=== PATIENT | female | born 1965 | race Caucasian/White ===

== ENCOUNTER 2018-12-05 14:36 | Inpatient (IN) | payer OTHER ==
--- NOTE | 2018-12-05 15:33 | RAD REPORT ---
EXAM DESCRIPTION: RAD - Chest Single View - 12/05/2018 3:28 pm CLINICAL HISTORY: CHEST PAIN Chest pain. COMPARISON: Chest Pa And Lat (2 Views) dated 10/06/2017 FINDINGS: Portable technique limits examination quality. The lungs are grossly clear. The heart is upper limit normal in size. No displaced fractures. IMPRESSION: No acute intrathoracic process suspected.
[2018-12-05 15:34] LABS: Absolute Lymphocytes (CBC) 1.5 K/uL (0.7-4.9); Absolute Monocytes 0.4 K/uL (0.1-1.3); Absolute Neutrophil 3.8 K/uL (1.8-8.0); Basophils % 1.2 % (0-1.3); Eosinophils % 0.5 % (0-4.4); Hematocrit 39.9 % (36.0-45.0); Lymphocytes % 25.1 % (15.3-44.8); MPV 7.5 fL (7.6-11.3); Monocytes % 6.8 % (3.3-12.3); RBC Red Blood Cell Count 4.04 M/uL (3.86-4.86)
[2018-12-05] MEDS ORDERED: KETOROLAC 30 MG/ML INJ ONE (15:41)
[2018-12-05] MEDS ORDERED: ASPIRIN EC 325 MG TABLET PO ONE (15:42)
[2018-12-05 15:54] LABS: Albumin 4.4 g/dL (3.4-5.0); Bilirubin Direct 0.2 mg/dL (0-0.2); Bilirubin Total 0.5 mg/dL (0.2-1.0); Magnesium 2.3 mg/dL (1.8-2.4); Protein, Total 7.9 g/dL (6.4-8.2); Troponin (Emerg Dept Use Only) 0.06 ng/mL (0.0-0.045)
[2018-12-05 16:10] LABS: Urine Blood NEGATIVE (NEG); Urine Glucose NEGATIVE (NEG); Urine Protein NEGATIVE (NEG)
[2018-12-05] MEDS ORDERED: METOPROLOL XL 50 MG TAB PO ONE (16:10)
--- NOTE | 2018-12-05 16:27 | ER ---
Nurse's Notes [facility] Name: Robyn Key Age: 52 yrs Sex: Female : 1965 Arrival Date: 12/05/2018 Time: 14:38 Bed 25 Private MD: Mateo Jeong Diagnosis: Chest pain, unspecified Presentation: 12/05 14:53 Presenting complaint: Patient states: anterior and posterior chest pain after working aa5 out this morning. Pt also reports high blood pressure today 172/80. Transition of care: patient was not received from another setting of care. Onset of symptoms was December 05, 2018. Risk Assessment: Do you want to hurt yourself or someone else? Patient reports no desire to harm self or others. Initial Sepsis Screen: Does the patient meet any 2 criteria? No. Patient's initial sepsis screen is negative. Does the patient have a suspected source of infection? No. Patient's initial sepsis screen is negative. Care prior to arrival: None. 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 - Social history:: Smoking status: Patient/guardian denies using tobacco. - Ebola Screening: : No symptoms or risks identified at this time. Screenin:04 Abuse screen: Denies threats or abuse. Denies injuries from another. Nutritional mg2 screening: No deficits noted. Tuberculosis screening: No symptoms or risk factors identified. Fall Risk IV access (20 points). Assessment: 16:03 General: Appears in no apparent distress. comfortable, Behavior is calm, cooperative. mg2 Pain: Denies pain. Neuro: Level of Consciousness is awake, alert, obeys commands, Oriented to person, place, time, situation. Cardiovascular: Reports chest pain, since morning but resolved Capillary refill < 3 seconds Patient's skin is warm and dry. Respiratory: Airway is patent Respiratory effort is even, unlabored, Respiratory pattern is regular, symmetrical. GI: No signs and/or symptoms were reported involving the gastrointestinal system. : No signs and/or symptoms were reported regarding the genitourinary system. EENT: No signs and/or symptoms were reported regarding the EENT system. Derm: Skin is intact, is healthy with good turgor, Skin is pink, warm \T\ dry. normal. Musculoskeletal: Circulation, motion, and sensation intact. Capillary refill < 3 seconds. 16:07 Pain: Pain radiates to back Pain began this morning. mg2 17:01 Reassessment: called the floor and said she will call back to receive the report. mg2 Vital Signs: 14:56 BP 170 / 95; Pulse 82; Resp 16 S; Temp 99.0(TE); Pulse Ox 100% on R/A; Weight 79.83 kg aa5 (R); Height 5 ft. 10 in. (177.80 cm) (R); Pain 4/10; 15:10 BP 164 / 95 RA (auto/lg); Pulse 67; Resp 16; Pulse Ox 100% on R/A; Pain 4/10; jp3 16:10 BP 160 / 83; Pulse 65; Resp 18; Pulse Ox 100% on R/A; Pain 0/10; mg2 16:23 BP 152 / 83 RA; Pulse 61; Resp 18; Pulse Ox 100% on R/A; Pain 0/10; mg2 16:23 BP 158 / 91 LA; Pulse 60; Resp 18; Pulse Ox 100% on R/A; mg2 18:06 BP 158 / 86; Pulse 68; Resp 17; Pulse Ox 100% on R/A; Pain 0/10; mg2 14:56 Body Mass Index 25.25 (79.83 kg, 177.80 cm) aa5 ED Course: 14:38 Patient arrived in ED. mr 14:38 Mateo Jeong MD is Private Physician. mr 14:53 Arm band placed on. aa5 14:55 Triage completed. aa5 14:57 Afshin Daniel, CALLY is Primary Nurse. mg2 15:06 EKG done, by audio video tech. reviewed by Jose Armando Fitzgerald MD. at1 15:07 Bucky Calvo PA is PHCP. cp 15:07 Tasha Glass MD is Attending Physician. cp 15:28 XRAY Chest (1 view) In Process Unspecified. EDMS 16:05 Patient has correct armband on for positive identification. Pulse ox on. NIBP on. Door mg2 closed. Warm blanket given. 16:05 No provider procedures requiring assistance completed. Inserted saline lock: 20 gauge mg2 in left antecubital area, using aseptic technique. Blood collected. Patient maintains SpO2 saturation greater than 95% on room air. 16:25 Alexandrea Singh MD is Hospitalizing Provider. cp 18:08 Patient admitted, IV remains in place. mg2 Administered Medications: 16:02 Not Given (Patient Refused): Aspirin Chewable Tablet 324 mg PO once; 81 mg tablets x 4, mg2 if negative 16:02 Not Given (Patient Refused): TORadol 30 mg IVP once; if test negative mg2 16:02 Drug: Metoprolol 25 mg Route: PO; mg2 16:57 Follow up: Response: No adverse reaction mg2 16:21 Drug: Aspirin Chewable Tablet 324 mg Route: PO; mg2 16:57 Follow up: Response: No adverse reaction mg2 16:22 Drug: Lovenox 1 mg/kg Route: Sub-Q; Site: left lower abdomen; mg2 16:57 Follow up: Response: No adverse reaction mg2 Outcome: 16:26 Decision to Hospitalize by Provider. cp 18:08 Admitted to Tele accompanied by tech, via wheelchair, room 403, with chart, Report mg2 called to CALLY Servin 18:08 Condition: stable 18:08 Instructed on the need for admit, Demonstrated understanding of instructions. 18:11 Patient left the ED. mg2 Signatures: Dispatcher [employer] JUAN AllenNatalie WallerSade ott RN RN aa5 Suri Martinez, guinea pig breeder EKG Tat1 Bucky Calvo PA PA cp [place], Michele RN RN mg2 iNc Roman jp3 Corrections: (The following items were deleted from the chart) 16:26 16:23 BP 152 / 83; Pulse 61bpm; Resp 18bpm; Pulse Ox 100% RA; Pain 0/10; mg2 mg2
--- NOTE | 2018-12-05 16:27 | EDPHYS ---
Physician Documentation [facility] Name: Robyn Key Age: 52 yrs Sex: Female : 1965 Arrival Date: 12/05/2018 Time: 14:38 Bed 25 Private MD: Mateo Jeong ED Physician Tasha Glass HPI: 12/05 15:20 This 52 yrs old Female presents to ER via Ambulatory with complaints of High cp Blood Pressure, Chest Tightness, Back Pain. 15:20 The patient has elevated blood pressure and discovered this at home, with a home cp device. Onset: The symptoms/episode began/occurred today. Associated signs and symptoms: Pertinent positives: chest pain, left upper back pain. 15:20 The patient or guardian reports chest pain that is located primarily in the anterior cp chest wall. 15:20 Onset: this morning, started after exercising. 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 - Social history:: Smoking status: Patient/guardian denies using tobacco. - Ebola Screening: : No symptoms or risks identified at this time. ROS: 15:25 Constitutional: Negative for body aches, chills, fever, poor PO intake. cp 15:25 Eyes: Negative for injury, pain, redness, and discharge. cp 15:25 ENT: Negative for drainage from ear(s), ear pain, sore throat, difficulty swallowing, difficulty handling secretions. 15:25 Cardiovascular: Positive for chest pain, Negative for edema, palpitations. 15:25 Respiratory: Negative for cough, dyspnea on exertion, shortness of breath, wheezing. 15:25 Abdomen/GI: Negative for abdominal pain, nausea, vomiting, and diarrhea, black/tarry stool, rectal bleeding. 15:25 Back: Positive for pain at rest, pain with movement, of the left upper back, Negative for injury or acute deformity, decreased range of motion. 15:25 : Negative for urinary symptoms. 15:25 Skin: Negative for cellulitis, rash. 15:25 Neuro: Negative for altered mental status, dizziness, headache, syncope, near syncope, weakness. 15:25 All other systems are negative. Exam: 15:28 Constitutional: The patient appears in no acute distress, alert, awake, cp non-diaphoretic, non-toxic, well developed, well nourished. 15:28 Head/Face: Normocephalic, atraumatic. Eyes: Pupils equal round and reactive to light, cp extra-ocular motions intact. Lids and lashes normal. Conjunctiva and sclera are non-icteric and not injected. Cornea within normal limits. Periorbital areas with no swelling, redness, or edema. ENT: Nares patent. No nasal discharge, no septal abnormalities noted. Tympanic membranes are normal and external auditory canals are clear. Oropharynx with no redness, swelling, or masses, exudates, or evidence of obstruction, uvula midline. Mucous membranes moist. Neck: Trachea midline, no thyromegaly or masses palpated, and no cervical lymphadenopathy. Supple, full range of motion without nuchal rigidity, or vertebral point tenderness. No Meningismus. Chest/axilla: Normal chest wall appearance and motion. Nontender with no deformity. No lesions are appreciated. 15:28 Cardiovascular: Rate: normal, Rhythm: regular, Pulses: Pulses are 2+ in right radial artery and left radial artery. Heart sounds: murmur, not appreciated, Edema: is not appreciated, JVD: is not appreciated. 15:28 Respiratory: the patient does not display signs of respiratory distress, Respirations: normal, no use of accessory muscles, no retractions, no splinting, no tachypnea, labored breathing, is not present, Breath sounds: are clear throughout, no decreased breath sounds, no stridor, no wheezing. 15:28 Abdomen/GI: Inspection: abdomen appears normal, Bowel sounds: active, all quadrants, Palpation: abdomen is soft and non-tender, in all quadrants. 15:28 Back: pain, that is mild, of the left trapezius, right trapezius, left scapular area and right scapular area, ROM is normal. 15:28 Musculoskeletal/extremity: Exam is negative for calf tenderness, decreased range of motion, deformity, injury. 15:28 Skin: cellulitis, is not appreciated, no rash present. 15:28 Neuro: Orientation: to person, place \T\ time. Mentation: is normal, Cerebellar function: is grossly normal, Motor: moves all fours, strength is normal, Sensation: is normal. 15:31 ECG was reviewed by the Attending Physician. Vital Signs: 14:56 BP 170 / 95; Pulse 82; Resp 16 S; Temp 99.0(TE); Pulse Ox 100% on R/A; Weight 79.83 kg aa5 (R); Height 5 ft. 10 in. (177.80 cm) (R); Pain 4/10; 15:10 BP 164 / 95 RA (auto/lg); Pulse 67; Resp 16; Pulse Ox 100% on R/A; Pain 4/10; jp3 16:10 BP 160 / 83; Pulse 65; Resp 18; Pulse Ox 100% on R/A; Pain 0/10; mg2 16:23 BP 152 / 83 RA; Pulse 61; Resp 18; Pulse Ox 100% on R/A; Pain 0/10; mg2 16:23 BP 158 / 91 LA; Pulse 60; Resp 18; Pulse Ox 100% on R/A; mg2 18:06 BP 158 / 86; Pulse 68; Resp 17; Pulse Ox 100% on R/A; Pain 0/10; mg2 14:56 Body Mass Index 25.25 (79.83 kg, 177.80 cm) aa5 MDM: 15:08 Patient medically screened. 16:25 Data reviewed: vital signs, nurses notes, lab test result(s), EKG, radiologic studies, cp plain films. 16:25 Test interpretation: by ED physician or midlevel provider: ECG, plain radiologic cp studies. 16:25 Physician consultation: Alexandrea Singh MD was called at 16:20, was contacted at 16:20, regarding admission, to the telemetry unit. patient's condition. 12/05 15:17 Order name: Basic Metabolic Panel; Complete Time: 15:55 mg2 12/05 15:55 Interpretation: Normal except: GFR 70. cp 12/05 15:17 Order name: CBC with Diff; Complete Time: 15:55 mg2 12/05 16:23 Interpretation: Normal except: MPV 7.5. cp 12/05 15:17 Order name: LFT's; Complete Time: 15:55 mg2 12/05 15:17 Order name: Magnesium; Complete Time: 15:55 mg2 12/05 15:17 Order name: NT PRO-BNP; Complete Time: 15:55 mg2 12/05 15:17 Order name: PT-INR; Complete Time: 16:08 mg2 12/05 16:08 Interpretation: Reviewed. cp 12/05 15:17 Order name: Troponin (emerg Dept Use Only); Complete Time: 15:55 mg2 12/05 15:55 Interpretation: Abnormal: TROPED 0.06. cp 12/05 15:17 Order name: XRAY Chest (1 view); Complete Time: 15:55 mg2 12/05 15:17 Order name: D-Dimer; Complete Time: 16:08 cp 12/05 16:08 Interpretation: Reviewed. cp 12/05 15:58 Order name: Urine Dipstick--Ancillary (enter results); Complete Time: 16:23 eb 12/05 15:58 Order name: Urine --Ancillary (enter results); Complete Time: 16:23 eb 12/05 15:17 Order name: EKG; Complete Time: 15:18 mg2 12/05 15:17 Order name: Cardiac monitoring; Complete Time: 15:25 mg2 12/05 15:17 Order name: EKG - Nurse/Tech; Complete Time: 15:25 mg2 12/05 15:17 Order name: IV Saline Lock; Complete Time: 15:25 mg2 12/05 15:17 Order name: Labs collected and sent; Complete Time: 15:25 mg2 12/05 15:17 Order name: O2 Per Protocol; Complete Time: 15:25 mg2 12/05 15:17 Order name: O2 Sat Monitoring; Complete Time: 15:25 mg2 12/05 15:28 Order name: Urine Test (obtain specimen); Complete Time: 16:02 cp 12/05 15:28 Order name: Urine Dipstick-Ancillary (obtain specimen); Complete Time: 16:02 cp 12/05 15:56 Order name: Misc. Order: strict bed rest; Complete Time: 16:03 cp 12/05 16:10 Order name: Blood Pressure Recheck: bilateral upper extremity; Complete Time: 16:22 cp EC:31 Rate is 65 beats/min. Rhythm is regular. IL interval is normal. QRS interval is normal. cp QT interval is normal. Interpreted by me. Reviewed by me. Administered Medications: 16:02 Not Given (Patient Refused): Aspirin Chewable Tablet 324 mg PO once; 81 mg tablets x 4, mg2 if negative 16:02 Not Given (Patient Refused): TORadol 30 mg IVP once; if test negative mg2 16:02 Drug: Metoprolol 25 mg Route: PO; mg2 16:57 Follow up: Response: No adverse reaction mg2 16:21 Drug: Aspirin Chewable Tablet 324 mg Route: PO; mg2 16:57 Follow up: Response: No adverse reaction mg2 16:22 Drug: Lovenox 1 mg/kg Route: Sub-Q; Site: left lower abdomen; mg2 16:57 Follow up: Response: No adverse reaction mg2 Disposition: 19:25 Co-signature as Attending Physician, Tasha Glass MD. ma2 Disposition: 12/05/18 16:26 Hospitalization ordered by Alexandrea Singh for Observation. Preliminary diagnosis is Chest pain, unspecified. - Bed requested for Telemetry/MedSurg (observation). - Status is Observation. mg2 - Condition is Stable. - Problem is new. - Symptoms have improved. UTI on Admission? No Signatures: Dispatcher [employer] EDMS Sade Waller, RN RN aa5 Bucky Calvo PA PA cp Alzahri, Mohammad, MD MD ma2 [place] Michele, RN RN mg2 Corrections: (The following items were deleted from the chart) 16:52 16:26 Hospitalization Ordered by Alexandrea Singh MD for Observation. Preliminary diagnosis eb is Chest pain, unspecified. Bed requested for Telemetry/MedSurg (observation). Status is Observation. Condition is Stable. Problem is new. Symptoms have improved. UTI on Admission? No. cp 18:11 16:52 12/05/2018 16:26 Hospitalization Ordered by Alexandrea Singh MD for Observation. mg2 Preliminary diagnosis is Chest pain, unspecified. Bed requested for Telemetry/MedSurg (observation). Status is Observation. Condition is Stable. Problem is new. Symptoms have improved. UTI on Admission? No. eb
[2018-12-05] MEDS ORDERED: ENOXAPARIN 80 MG/0.8 ML SQ ONE (16:28)
--- NOTE | 2018-12-05 17:25 | EKG ---
Test Date: 2018-12-05 Test Time: 14:57:03 Leadership Program Associate: DESIRAE MEASUREMENT RESULTS: Intervals: Rate: 65 SC: 172 QRSD: 84 QT: 398 QTc: 413 [place]: P: 41 SC: 172 QRS: 32 T: 30 INTERPRETIVE STATEMENTS: Normal sinus rhythm Normal ECG No previous ECG available for comparison Electronically Signed On 12-05-18 17:24:54 PILE DRIVER OPERATOR HELPER by Daniel Mattson
[2018-12-05 18:26] VITALS: BMI 25.5
--- NOTE | 2018-12-05 19:35 | P.HP ---
Patient History Date of Service: 12/05/18 Reason for admission: Chest pain History of Present Illness: This is a 52-year-old female with underlying history of hypertension admitted for chest pain. Per patient, she is had this is substernal chest pain since July. Describes it as a dull type of ache that she notices mostly after exercising. She does not experience any pain during exercise. She states that she has no alleviating or exacerbating factors. She has a very active person, exercises daily for at least 30 min to 1 hr. She wants/practice a marathons, etc. Denies any nausea, vomiting, shortness of breath, headache, vision changes , speech changes, GI or complaints along with this chest pain. She has a history of hypertension, previously was on lisinopril. She developed cough and was changed to amlodipine 5 mg. Family history is pertinent for father with cardiac disease and a defibrillator, though no early diagnosed cardiac disease. She does not smoke, occasional alcohol and denies any illegal drug usage. In the ER, patient's EKG with no ST changes though troponin was elevated to 0.06. Otherwise lab work was normal, chest x-ray was normal along with BNP. At time of my exam, patient was alert oriented x3, in no acute distress and hemodynamically stable. Allergies No Known Allergies Allergy (Unverified 12/05/18 16:58) Home Medications: Amlodipine Besylate 5 mg PO DAILY 12/05/18 - Past Medical/Surgical History -: Hypertension - Family History Mother -: Cancer Notes: Lung CA Father -: Heart disease - Social History Smoking Status: Never smoker Alcohol use: Yes Review of Systems 10-point ROS is otherwise unremarkable Physical Examination - Vital Signs Temperature: 98.5 F Blood Pressure: 155/83 Pulse: 66 Respirations: 18 Pulse Ox (%): 100 - Physical Exam General: Alert, In no apparent distress, Oriented x3 HEENT: Atraumatic, PERRLA, Mucous membr. moist/pink, EOMI, Sclerae nonicteric Neck: Supple, 2+ carotid pulse no bruit, No LAD, Without JVD or thyroid abnormality Respiratory: Clear to auscultation bilaterally, Normal air movement Cardiovascular: Regular rate/rhythm, Normal S1 S2 Gastrointestinal: Normal bowel sounds, No tenderness Musculoskeletal: No tenderness Integumentary: No rashes Neurological: Normal gait, Normal speech, Normal strength at 5/5 x4 extr, Normal tone, Normal affect - Studies Laboratory Data (last 24 hrs) 12/05/18 15:20: PT 11.8, INR 1.00 12/05/18 15:20: WBC 5.8, Hgb 13.4, Hct 39.9, Plt Count 236 12/05/18 15:20: Sodium 141, Potassium 4.0, BUN 12, Creatinine 0.85, Glucose 93, Magnesium 2.3, Total Bilirubin 0.5, AST 23, ALT 24, Alkaline Phosphatase 66 Assessment and Plan - Problems (Diagnosis) (1) Chest pain Current Visit: Yes Status: Acute Qualifiers: Chest pain type: unspecified Qualified Code(s): R07.9 - Chest pain, unspecified (2) Hypertension Current Visit: Yes Status: Chronic Qualifiers: Hypertension type: essential hypertension Qualified Code(s): I10 - Essential (primary) hypertension (3) Elevated troponin Current Visit: Yes Status: Acute - Plan Chest pain R/O HTN DDx: Anxiety, panic attack, cardiac pain, musculoskeletal Trend ECG and troponins Chest pain guidelines: BB, ASA, plavix, statin ECHO ordered, pending Continue home medications. DVT prophylaxis: Lovenox GI prophylaxis: None Diet: Heart healthy, NPO after midnight Disposition: Pending further workup - Advance Directives Does patient have a Living Will: No Does patient have a Durable POA for Healthcare: No Time Spent Managing Pts Care (In Minutes): 55
[2018-12-05] MEDS ORDERED: METOPROLOL TAR 25 MG TAB PO SCH (20:01)
[2018-12-05] MEDS ORDERED: NITROGLYCERIN 0.4 MG/TAB SL PRN (20:01)
[2018-12-05] MEDS ORDERED: MORPHINE 2 MG/ML SYR IV PRN (20:01)
[2018-12-05] MEDS: NA CHLORIDE 0.9% 1,000 ML IV SCH (20:27)
[2018-12-05 20:43] LABS: Urine Appearance CLEAR; Urine Bilirubin NEGATIVE (NEG); Urine Blood NEGATIVE (NEG); Urine Color YELLOW; Urine Glucose NEGATIVE (NEG); Urine Protein NEGATIVE (NEG); Urine Specific Gravity <=1.005 (1.005-1.030); Urine Urobilinogen 0.2 mg/dL (0.2-1.0)
[2018-12-05] MEDS ORDERED: ATORVASTATIN 40 MG TAB PO SCH (21:00)
[2018-12-05 21:22] LABS: Thyroid Stimulating Hormone 2.95 uIU/mL (0.360-3.740)
[2018-12-05 21:42] LABS: Urine Microscopic Reflex NO UMIC
[2018-12-06] MEDS: METOPROLOL TAR 25 MG TAB PO SCH ×2 (05:49→08:37)
[2018-12-06] MEDS: NA CHLORIDE 0.9% 1,000 ML IV SCH ×2 (05:55→15:04)
[2018-12-06 06:30] LABS: Absolute Lymphocytes (CBC) 1.7 K/uL (0.7-4.9); Absolute Monocytes 0.4 K/uL (0.1-1.3); Absolute Neutrophil 2.5 K/uL (1.8-8.0); Eosinophils % 1.7 % (0-4.4); Hematocrit 36.5 % (36.0-45.0); Lymphocytes % 35.8 % (15.3-44.8); MPV 7.6 fL (7.6-11.3); RBC Red Blood Cell Count 3.71 M/uL (3.86-4.86)
[2018-12-06] MEDS ORDERED: HEPA 1000U/500MLS 2,000 UNIT/1,000 ML BAG IV ONE (08:40)
[2018-12-06] MEDS ORDERED: LIDOCAINE 1% 20 ML MDV ONE (08:40)
[2018-12-06] MEDS ORDERED: NA CHLORIDE 0.9% 0 ML ONE (08:41)
[2018-12-06] MEDS ORDERED: ATROPINE SULF 1 MG/10 ML SYR IV ONE (08:41)
[2018-12-06] MEDS ORDERED: HEPARIN 5000 UNIT/ML 1 ML VIAL ONE (08:41)
[2018-12-06] MEDS ORDERED: NICARDIPINE HCL 25 MG/10 ML IV ONE (08:42)
[2018-12-06] MEDS ORDERED: NITROGLYCERIN 100 MCG/ML SYR (for cath lab use only) IV ONE (08:42)
[2018-12-06 08:52] LABS: Albumin 3.5 g/dL (3.4-5.0); Bilirubin Total 0.5 mg/dL (0.2-1.0); Potassium 4.2 mmol/L (3.5-5.1); Protein, Total 6.4 g/dL (6.4-8.2)
[2018-12-06] MEDS ORDERED: ASPIRIN EC 81 MG TAB PO SCH (09:00)
[2018-12-06] MEDS ORDERED: CLOPIDOGREL 75 MG TABLET PO SCH (09:00)
[2018-12-06] MEDS ORDERED: MIDAZOLAM HCL 2 MG/2 ML INJ ONE ×2 (09:04→09:26)
[2018-12-06] MEDS ORDERED: FENTANYL CITR 100 MCG/2 ML ONE (09:04)
--- NOTE | 2018-12-06 12:15 | CON ---
Chief Complaint: Chest pain. Reason For Consult: Chest pain, abnormal troponins. History Of Present Illness: Ms. Key has been having chest pain since July. She tends to get it a few hours after a workout, not during the workout. She works out heavily. She has underlying h ypertension and while she was having chest pain yesterday, her blood pressure was also elevated and s brie being in the hospital, she has had an abnormal troponin test, abnormal EKG. The patient has nev er had myocardial infarction, stroke, or any vascular disease that she knows of. She uses no tobacco . Rare alcohol. No illegal drugs. She takes amlodipine 5 mg a day as her only medication. Has no allergies. She has been tested for dyslipidemia, and she was told her cholesterol was borderline hig h, but we do not have any exact numbers. Her father also had heart disease and defibrillator and hea rt failure. Physical Examination: General: 5 feet 10 inches, 178 pounds. HEENT: Normal. Lungs: Clear. Cardiac: Normal. Abdomen: Soft. Extremities: Normal. No cyanosis, clubbing, or edema. Distal pulses are normal. Impression: Ms. Key seems to have had a non-ST elevation myocardial infarction. I have recommen ded cardiac cath and possible stent. The patient seems to understand the procedure, potential benefits, indications, risks, and ag analilia to proceed. SHANNON Voice ID: [id number] Report ID: [id number]
--- NOTE | 2018-12-06 15:17 | P.DS ---
Admission Date: 12/05/18 Discharge Date: 12/06/18 Disposition: ROUTINE DISCHARGE Discharge Condition: GOOD Reason for Admission: Chest pain Consultations: Cardiology Procedures: Cardiac catheterization- no interventions/stent placement - Problems (1) Chest pain Current Visit: Yes Status: Acute Qualifiers: Chest pain type: unspecified Qualified Code(s): R07.9 - Chest pain, unspecified (2) Hypertension Current Visit: Yes Status: Chronic Qualifiers: Hypertension type: essential hypertension Qualified Code(s): I10 - Essential (primary) hypertension (3) Elevated troponin Current Visit: Yes Status: Acute Brief History of Present Illness: This is a 52-year-old female with underlying history of hypertension admitted for chest pain. Per patient, she is had this is substernal chest pain since July. Describes it as a dull type of ache that she notices mostly after exercising. She does not experience any pain during exercise. She states that she has no alleviating or exacerbating factors. She has a very active person, exercises daily for at least 30 min to 1 hr. She wants/practice a marathons, etc. Denies any nausea, vomiting, shortness of breath, headache, vision changes , speech changes, GI or complaints along with this chest pain. She has a history of hypertension, previously was on lisinopril. She developed cough and was changed to amlodipine 5 mg. Family history is pertinent for father with cardiac disease and a defibrillator, though no early diagnosed cardiac disease. She does not smoke, occasional alcohol and denies any illegal drug usage. In the ER, patient's EKG with no ST changes though troponin was elevated to 0.06. Otherwise lab work was normal, chest x-ray was normal along with BNP. At time of my exam, patient was alert oriented x3, in no acute distress and hemodynamically stable. Hospital Course: Patient was admitted for chest pain, rule out. Initial troponin was 0.06 with which increased to 0.11 overnight. She was started on chest pain dialysis beta- anette, statin. Morphine and nitro ordered for pain as needed. Cardiology was consulted and patient underwent a cardiac catheterization, which was normal and no stent was placed. Lipid panel is fairly normal. She is cleared from cardiology and she was not noted to have any coronary artery disease at this time. Beta-anette and a statin was discontinued. She was then discharged home with a prescription for Nitrostat. Prior to discharge, she was alert oriented x3, hemodynamically stable and symptoms had resolved. Vital Signs/Physical Exam: Temp Pulse Resp BP Pulse Ox 98.5 F 66 18 155/83 H 100 12/06/18 15:10 12/06/18 15:10 12/06/18 15:10 12/06/18 15:10 12/06/18 15:10 General: Alert, In no apparent distress, Oriented x3 HEENT: Atraumatic, PERRLA, EOMI Neck: Supple, JVD not distended Respiratory: Clear to auscultation bilaterally, Normal air movement Cardiovascular: Regular rate/rhythm, Normal S1 S2 Gastrointestinal: Normal bowel sounds, No tenderness Musculoskeletal: No tenderness Integumentary: No rashes Neurological: Normal speech, Normal tone, Normal affect Lymphatics: No axilla or inguinal lymphadenopathy Laboratory Data at Discharge: WBC 4.7 K/uL (4.3-10.9) D 12/06/18 06:05 Hgb 12.7 g/dL (12.0-15.0) 12/06/18 06:05 Hct 36.5 % (36.0-45.0) 12/06/18 06:05 Plt Count 232 K/uL (152-406) 12/06/18 06:05 PT 11.8 SECONDS (9.5-12.5) 12/05/18 15:20 INR 1.00 12/05/18 15:20 Sodium 145 mmol/L (136-145) 12/06/18 06:05 Potassium 4.2 mmol/L (3.5-5.1) 12/06/18 06:05 BUN 12 mg/dL (7-18) 12/06/18 06:05 Creatinine 0.87 mg/dL (0.55-1.3) 12/06/18 06:05 Glucose 95 mg/dL (74-106) 12/06/18 06:05 Magnesium 2.3 mg/dL (1.8-2.4) 12/05/18 15:20 Total Bilirubin 0.5 mg/dL (0.2-1.0) 12/06/18 06:05 AST 17 U/L (15-37) 12/06/18 06:05 ALT 19 U/L (12-78) 12/06/18 06:05 Alkaline Phosphatase 54 U/L (45-117) 12/06/18 06:05 Troponin I 0.09 ng/mL (0.0-0.045) H 12/06/18 06:05 Triglycerides 89 mg/dL (<150) 12/06/18 06:05 Cholesterol 206 mg/dL (<200) H 12/06/18 06:05 HDL Cholesterol 75 mg/dL (40-60) H 12/06/18 06:05 Cholesterol/HDL Ratio 2.75 12/06/18 06:05 Home Medications: Amlodipine Besylate 5 mg PO DAILY 12/05/18 Nitroglycerin [Nitrostat*] 0.4 mg SL UD PRN #15 tab 12/06/18 New Medications: Nitroglycerin [Nitrostat*] 0.4 mg SL UD PRN #15 tab PRN Reason: Pain Scale 2-4 (Mild) Patient Discharge Instructions: Please follow up with the primary care physician in 1 week. New medications: Nitrostat as needed for pain Diet: AHA Activity: Ad colt Time spent managing pt's care (in minutes): 55
[2018-12-06 15:57] VITALS: BP 136/75
[2018-12-06] MEDS ORDERED: AMLODIPINE 5 MG TAB PO SCH (16:00)
[2018-12-06 16:20] VITALS: O2SAT 99
[2018-12-06 16:27] VITALS: TEMP 98.3
--- NOTE | 2018-12-06 21:15 | OP ---
Surgeon: Daniel Mattson MD Procedures: Left heart catheterization, coronary left ventricular angiography. Findings: The patient's coronary arteries are normal and are left dominant. No stenosis. No calcif ication. No spasm. Left ventricular ejection fraction is normal. All of her pressures were normal. Procedure In Detail: The patient had evidence of a [id number] PR. She was brought to the [facility] catheterization lab in a fasting state, sedated with Versed and fentanyl, prepared and draped in usual sterile fashion. Right radial approach was used. The tissues over the right radial artery wer e anesthetized with 1% lidocaine. The artery was entered using a 21-gauge needle, cannulated with a 0.739-vcxu-ornbiown guidewire, and then the modified Seldinger technique was used to place a 6-Occitan Terumo radial sheath. The sheath was flushed, and we administered the radial cocktail consisting of nicardipine, heparin, and nitroglycerin. We used a TIG catheter, guided into the ascending aorta us ing a Terumo Glidewire and fluoroscopy. We used the TIG catheter to angiogram left ventricle, left c oronary, and right coronary. At the end of the procedure, the catheter was withdrawn over a J-wire. Sheath was flushed, removed, and the arteriotomy was closed with a TR Band. No complications from t he procedure. Estimated Blood Loss: 5 cc. BROOKLYN/RENEE Voice ID: [id number] Report ID: [id number]
== END 2018-12-06 16:35 | disposition home or self-care (01) | DRG 287 ==
LOC: ER 14:36 → ERHOLD 16:17 → 4TH 18:06 → OBSVTOIN 12-06 09:10
PROVIDERS: ADMIT Family Medicine; ATTEND Family Medicine
PROC: 4A023N7 Measurement of Cardiac Sampling and Pressure, Left Heart, Percutaneous Approach (ICD-10-PCS; principal; 2018-12-06)
PROC: B211YZZ Fluoroscopy of Multiple Coronary Arteries using Other Contrast (ICD-10-PCS; 2018-12-06)
PROC: B215YZZ Fluoroscopy of Left Heart using Other Contrast (ICD-10-PCS; 2018-12-06)
DX: R07.9 Chest pain, unspecified (principal); I10 Essential (primary) hypertension; R79.89 Other specified abnormal findings of blood chemistry
CPT/HCPCS: 36415; 71045; 80048; 80053; 80061; 80076; 81003; 81025; 83735; 83880; 84439; 84443; 84484; 85025; 85379; 85610; 93005; 93458; 94760; 96372; 99285; C1893; G0378; J0583; J1644; J1650; J2250; J3010; J7030

== ENCOUNTER 2019-01-30 07:16 | Emergency (ER) | payer OTHER ==
--- OUTSIDE RECORDS SUMMARY | 2019-01-30 07:18 | XMS REPORT ---
:1965 [facility] Address [address] [place] [address] Dr. Hernandez [address] [place] [id number] Care Team Providers Name Role Phone Unavailable Unavailable Unavailable Problems This patient has no known problems. Allergies, Adverse Reactions, Alerts This patient has no known allergies or adverse reactions. Medications This patient has no known medications.
[2019-01-30] MEDS ORDERED: MAGNE/ALUM HYDROXD 30 ML UCUP ONE (08:03)
[2019-01-30] MEDS ORDERED: LIDOCAINE VISCOUS 2% SOLN 15 ML UDC ONE (08:04)
[2019-01-30] MEDS ORDERED: LORazepam 2 MG/ML VIAL ONE (08:04)
[2019-01-30 08:06] LABS: Absolute Lymphocytes (CBC) 1.6 K/uL (0.7-4.9); Absolute Monocytes 0.3 K/uL (0.1-1.3); Absolute Neutrophil 2.9 K/uL (1.8-8.0); Basophils % 1.1 % (0-1.3); Eosinophils % 1.4 % (0-4.4); Hematocrit 44.6 % (36.0-45.0); MPV 7.3 fL (7.6-11.3); Monocytes % 7.1 % (3.3-12.3); RBC Red Blood Cell Count 4.55 M/uL (3.86-4.86)
[2019-01-30 08:22] LABS: Albumin 4.6 g/dL (3.4-5.0); Bilirubin Direct 0.2 mg/dL (0-0.2); Bilirubin Total 0.7 mg/dL (0.2-1.0); Protein, Total 8.1 g/dL (6.4-8.2)
--- NOTE | 2019-01-30 08:59 | EDPHYS ---
Physician Documentation [facility] Name: Robyn Key Age: 53 yrs Sex: Female : 1965 Arrival Date: 01/30/2019 Time: 07:17 Bed 6 Private MD: Mateo Jeong ED Physician Pete Almendarez HPI: 01/30 08:09 This 53 yrs old Female presents to ER via Ambulatory with complaints of jr8 Abdominal Pain. 08:09 The patient presents with abdominal pain in the epigastric area. Onset: The jr8 symptoms/episode began/occurred acutely, last night. The symptoms do not radiate. Associated signs and symptoms: none. The symptoms are described as burning. Modifying factors: The symptoms are alleviated by antacids, the symptoms are aggravated by nothing. Severity of pain: At its worst the pain was mild in the emergency department the pain is unchanged. The patient has experienced similar episodes in the past, a few times. The patient has been recently seen by a physician:. Patient stated that she had been having problems since this past July when she was diagnosed with HTN. Stated that she was started on Lisinopril and then had to come off of it due to cough. This past November had bad chest pain and was admitted and had angiogram completed with no acute findings. Cleared cardiac maradiaga. Stated that they referred her to GI who has done US with no acute findings. Had been on PPI before hand with no relief and with adverse affects of medicine. Stated that because of all this she is very anxious and does not know if that may be the cause. Stated that she will take Rolaids and will help somewhat. Started to have pain last night and is suppose to go out of country on Wednesday . Historical: - Allergies: 07:27 No Known Allergies; ss - PMHx: 07:27 Hypertension; ss - PSHx: 07:27 L shoulder; ss - Immunization history:: Adult Immunizations up to date. - Social history:: Smoking status: Patient/guardian denies using tobacco. - Ebola Screening: : Patient denies exposure to infectious person Patient denies travel to an Ebola-affected area in the 21 days before illness onset. ROS: 08:09 Eyes: Negative for injury, pain, redness, and discharge, ENT: Negative for injury, jr8 pain, and discharge, Neck: Negative for injury, pain, and swelling, Cardiovascular: Negative for chest pain, palpitations, and edema, Respiratory: Negative for shortness of breath, cough, wheezing, and pleuritic chest pain, Back: Negative for injury and pain, MS/Extremity: Negative for injury and deformity, Skin: Negative for injury, rash, and discoloration, Neuro: Negative for headache, weakness, numbness, tingling, and seizure. 08:09 Abdomen/GI: Positive for abdominal pain, Negative for nausea, vomiting, and diarrhea, abdominal cramps, abdominal distension, anorexia, dysphagia, hematemesis, black/tarry stool, rectal pain, rectal bleeding, bowel incontinence, flatulence. Exam: 08:09 Eyes: Pupils equal round and reactive to light, extra-ocular motions intact. Lids and jr8 lashes normal. Conjunctiva and sclera are non-icteric and not injected. Cornea within normal limits. Periorbital areas with no swelling, redness, or edema. ENT: Nares patent. No nasal discharge, no septal abnormalities noted. Tympanic membranes are normal and external auditory canals are clear. Oropharynx with no redness, swelling, or masses, exudates, or evidence of obstruction, uvula midline. Mucous membranes moist. Neck: Trachea midline, no thyromegaly or masses palpated, and no cervical lymphadenopathy. Supple, full range of motion without nuchal rigidity, or vertebral point tenderness. No Meningismus. Cardiovascular: Regular rate and rhythm with a normal S1 and S2. No gallops, murmurs, or rubs. Normal PMI, no JVD. No pulse deficits. Respiratory: Lungs have equal breath sounds bilaterally, clear to auscultation and percussion. No rales, rhonchi or wheezes noted. No increased work of breathing, no retractions or nasal flaring. Abdomen/GI: Soft, non-tender, with normal bowel sounds. No distension or tympany. No guarding or rebound. No evidence of tenderness throughout. Back: No spinal tenderness. No costovertebral tenderness. Full range of motion. Skin: Warm, dry with normal turgor. Normal color with no rashes, no lesions, and no evidence of cellulitis. MS/ Extremity: Pulses equal, no cyanosis. Neurovascular intact. Full, normal range of motion. Neuro: Awake and alert, GCS 15, oriented to person, place, time, and situation. Cranial nerves II-XII grossly intact. Motor strength 5/5 in all extremities. Sensory grossly intact. Cerebellar exam normal. Normal gait. 08:14 ECG was reviewed by the Attending Physician. jr8 Vital Signs: 07:27 Resp 17; Temp 98.2(TE); Weight 77.11 kg; Height 5 ft. 10 in. (177.80 cm); Pain 5/10; ss 07:35 BP 163 / 91; Pulse 80; Pulse Ox 98% on R/A; aa5 08:15 BP 144 / 82; Pulse 70; Resp 16 S; Pulse Ox 97% on R/A; Pain 2/10; aa5 09:09 BP 145 / 87; Pulse 66; Resp 16; Pulse Ox 97% ; sv 07:27 Body Mass Index 24.39 (77.11 kg, 177.80 cm) ss MDM: 07:39 Patient medically screened. jr8 08:57 Data reviewed: vital signs, nurses notes, lab test result(s), EKG, and as a result, I jr8 will discharge patient. Data interpreted: Pulse oximetry: on room air is 97 %. Interpretation: normal. 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 Response to treatment: the patient's symptoms have markedly improved after treatment. ED course: Patient much more relaxed. Burning in epigastric region completely gone. Pain much better. VS stable. Labs and ECG unremarkable. Discussed with her gastritis vs PUD. Would like her to start on pepcid 20mg BID since PPI had adverse effects on her. Patient good with this and will f/u . 01/30 07:40 Order name: Basic Metabolic Panel; Complete Time: 08:35 01/30 07:40 Order name: CBC with Diff; Complete Time: 08:01/30 07:40 Order name: Creatinine for Radiology; Complete Time: 08:35 01/30 07:40 Order name: Hepatic Function; Complete Time: 08:35 01/30 07:40 Order name: Lipase; Complete Time: 08:35 01/30 07:40 Order name: IV Saline Lock; Complete Time: 08:00 01/30 07:40 Order name: Labs collected and sent; Complete Time: 08:01/30 07:40 Order name: EKG - Nurse/Tech; Complete Time: 08:00 01/30 07:40 Order name: EKG; Complete Time: 07:40 8 EC:14 Rate is 62 beats/min. Rhythm is regular, Normal Sinus Rhythm. QRS [place] is Normal. [place] jr8 interval is normal at 166 msec. QRS interval is normal at 88 msec. QT interval is normal at 420 msec. No Q waves. T waves are Normal. No ST changes noted. Clinical impression: Normal ECG. Interpreted by me. Reviewed by me. Administered Medications: 07:57 Drug: GI Cocktail without - (Maalox Suspension 30 ml, Lidocaine Liquid 2 % 15 aa5 ml) Route: PO; 09:09 Follow up: Response: No adverse reaction; Pain is decreased aa5 07:57 Drug: Ativan 0.5 mg Route: IVP; Site: right antecubital; aa5 08:10 Follow up: Response: No adverse reaction aa5 Disposition: :19 Co-signature as Attending Physician, Pete Almendarez MD. rn Disposition: 01/30/19 08:58 Discharged to Home. Impression: Gastritis, unspecified, without bleeding. - Condition is Stable. - Discharge Instructions: Gastritis, Adult. - Medication Reconciliation Form, Thank You Letter, Antibiotic Education, Prescription Opioid Use form. - Follow up: Private Physician; When: 10 - 14 days; Reason: If symptoms return, Recheck today's complaints, Continuance of care, Re-evaluation by your physician. - Problem is new. - Symptoms have improved. - Notes: Pepcid 20 mg Twice Daily Low acid diet Signatures: Dispatcher [employer] Cookie Chiang RN RN sv Nieto, Roman, MD MD rn Calderon, Audri, RN RN aa5 Kimberley Malloy RN RN ss Roszak, Josh, PA PA jr8 Corrections: (The following items were deleted from the chart) 09:10 08:58 01/30/2019 08:58 Discharged to Home. Impression: Gastritis, unspecified, without sv bleeding. Condition is Stable. Forms are Medication Reconciliation Form, Thank You Letter, Antibiotic Education, Prescription Opioid Use. Follow up: Private Physician; When: 10 - 14 days; Reason: If symptoms return, Recheck today's complaints, Continuance of care, Re-evaluation by your physician. Problem is new. Symptoms have improved. jr8
--- NOTE | 2019-01-30 08:59 | ER ---
Nurse's Notes [facility] Name: Robyn Key Age: 53 yrs Sex: Female : 1965 Arrival Date: 01/30/2019 Time: 07:17 Bed 6 Private MD: Mateo Jeong Diagnosis: Gastritis, unspecified, without bleeding Presentation: 01/30 07:25 Presenting complaint: Patient states: "I hope it's just my anxiety again, but I was ss seen here in November for the same thing, abd tightness and indigestion, well I followed up with my PCP who referred me to a GI specialist, who did an ultrasound and didn't find anything other than a small cyst on my liver and a small amount of fluid on my heart and told me to see a systems analysis manager, but I was feeling better, but now it's happening again, it started Wednesday, and I'm worried because we are going on a big vacation this Wednesday.". Transition of care: patient was not received from another setting of care. Onset of symptoms was November 2018. Risk Assessment: Do you want to hurt yourself or someone else? Patient reports no desire to harm self or others. Initial Sepsis Screen: Does the patient meet any 2 criteria? No. Patient's initial sepsis screen is negative. Does the patient have a suspected source of infection? No. Patient's initial sepsis screen is negative. Care prior to arrival: None. 07:25 Method Of Arrival: Ambulatory ss 07:25 Acuity: MONA 3 ss Historical: - Allergies: 07:27 No Known Allergies; ss - PMHx: 07:27 Hypertension; ss - PSHx: 07:27 L shoulder; ss - Immunization history:: Adult Immunizations up to date. - Social history:: Smoking status: Patient/guardian denies using tobacco. - Ebola Screening: : Patient denies exposure to infectious person Patient denies travel to an Ebola-affected area in the 21 days before illness onset. Screenin:25 Abuse screen: Denies threats or abuse. Nutritional screening: No deficits noted. aa5 Tuberculosis screening: No symptoms or risk factors identified. Fall Risk None identified. Assessment: 07:25 General: Appears uncomfortable, Behavior is cooperative, anxious. Pain: Complains of aa5 pain in epigastric area Pain does not radiate. Pain currently is 5 out of 10 on a pain scale. Quality of pain is described as burning, "tight and indigestion" Pain began 2-3 days ago. Is intermittent. Neuro: Level of Consciousness is awake, alert, obeys commands, Oriented to person, place, time, situation. Cardiovascular: Heart tones S1 S2 present Rhythm is regular. Respiratory: Airway is patent Respiratory effort is even, unlabored, Respiratory pattern is regular, symmetrical, Breath sounds are clear bilaterally. GI: Abdomen is round non-distended, Bowel sounds present X 4 quads. Abd is soft and non tender X 4 quads. Reports nausea. : No signs and/or symptoms were reported regarding the genitourinary system. EENT: No signs and/or symptoms were reported regarding the EENT system. Derm: Skin is pink, warm \\T\\ dry. Musculoskeletal: Range of motion: intact in all extremities. 08:15 Reassessment: Patient and/or family updated on plan of care and expected duration. Pain aa5 level reassessed. Patient is alert, oriented x 3, equal unlabored respirations, skin warm/dry/pink. Patient states feeling better. Pt appears calm. . Pain: Pain currently is 2 out of 10 on a pain scale. 09:00 Reassessment: Patient appears in no apparent distress at this time. Patient and/or sv family updated on plan of care and expected duration. Pain level reassessed. Patient is alert, oriented x 3, equal unlabored respirations, skin warm/dry/pink. Vital Signs: 07:27 Resp 17; Temp 98.2(TE); Weight 77.11 kg; Height 5 ft. 10 in. (177.80 cm); Pain 5/10; ss 07:35 BP 163 / 91; Pulse 80; Pulse Ox 98% on R/A; aa5 08:15 BP 144 / 82; Pulse 70; Resp 16 S; Pulse Ox 97% on R/A; Pain 2/10; aa5 09:09 BP 145 / 87; Pulse 66; Resp 16; Pulse Ox 97% ; sv 07:27 Body Mass Index 24.39 (77.11 kg, 177.80 cm) ED Course: 07:17 Patient arrived in ED. dl4 07:18 Mateo Jeong MD is Private Physician. dl4 07:19 Raúl Shaw PA is PHCP. jr8 07:19 Pete Almendarez MD is Attending Physician. jr8 07:27 Triage completed. ss 07:27 Arm band placed on right wrist. ss 07:27 Patient has correct armband on for positive identification. Placed in gown. Bed in low aa5 position. Call light in reach. Side rails up X2. 07:39 Sade Waller, RN is Primary Nurse. aa5 07:55 Initial lab(s) drawn, by me, sent to lab. Inserted saline lock: 20 gauge in right aa5 antecubital area, using aseptic technique. Blood collected. 07:59 EKG done, by mri technician. reviewed by Raúl DUNCAN. at1 09:09 No provider procedures requiring assistance completed. IV discontinued, intact, sv bleeding controlled, No redness/swelling at site. Pressure dressing applied. Administered Medications: 07:57 Drug: GI Cocktail without - (Maalox Suspension 30 ml, Lidocaine Liquid 2 % 15 aa5 ml) Route: PO; 09:09 Follow up: Response: No adverse reaction; Pain is decreased aa5 07:57 Drug: Ativan 0.5 mg Route: IVP; Site: right antecubital; aa5 08:10 Follow up: Response: No adverse reaction aa5 Outcome: 08:58 Discharge ordered by . jr8 09:09 Discharged to home ambulatory. sv 09:09 Condition: stable 09:09 Condition: improved 09:09 Discharge instructions given to patient, Instructed on discharge instructions, follow up and referral plans. informed of Pepcid change Demonstrated understanding of instructions, follow-up care. 09:10 Patient left the ED. sv Signatures: Cookie Rodriguez RN RN Sade Guzman, RN RN aa5 Kimberley Malloy RN RN ss Roszak, Josh, PA PA jr8 Suri Martinez, property disposal manager EKG Alexei1 Dhiraj Fitzgerald dl4 Corrections: (The following items were deleted from the chart) 07:44 07:35 BP 163 / 91; Pulse 80bpm; aa5 aa5
[2019-01-30 09:23] VITALS: TEMP 98.2
[2019-01-30 09:36] VITALS: O2SAT 97
[2019-01-30 09:37] VITALS: BP 145/87
--- NOTE | 2019-01-31 11:34 | EKG ---
Test Date: 2019-01-30 Test Time: 07:46:22 Bingo Manager: ALECIA MEASUREMENT RESULTS: Intervals: Rate: 62 [place]: 166 QRSD: 88 QT: 414 QTc: 420 [place]: P: 40 [place]: 166 QRS: 29 T: 39 INTERPRETIVE STATEMENTS: Normal sinus rhythm Normal ECG Compared to ECG 12/05/2018 14:57:03 No significant changes Electronically Signed On 01-30-19 10:47:58 CDT by Daniel Mattson
== END 2019-01-30 09:10 | disposition home or self-care (01) ==
LOC: ER 07:16
DX: K29.70 Gastritis, unspecified, without bleeding (principal); I10 Essential (primary) hypertension
CPT/HCPCS: 36415; 80048; 80076; 83690; 85025; 93005; 96374; 99284

== ENCOUNTER 2019-02-01 13:58 | Emergency (ER) | payer OTHER ==
--- OUTSIDE RECORDS SUMMARY | 2019-02-01 15:02 | XMS REPORT ---
:1965 [facility] Address [address] [place] [address] Dr. Hernandez [address] [place] [id number] Care Team Providers Name Role Phone Unavailable Unavailable Unavailable Problems This patient has no known problems. Allergies, Adverse Reactions, Alerts This patient has no known allergies or adverse reactions. Medications This patient has no known medications.
[2019-02-01 15:23] LABS: Absolute Lymphocytes (CBC) 1.6 K/uL (0.7-4.9); Absolute Monocytes 0.4 K/uL (0.1-1.3); Absolute Neutrophil 4.2 K/uL (1.8-8.0); Basophils % 0.5 % (0-1.3); Eosinophils % 0.3 % (0-4.4); Hematocrit 42.8 % (36.0-45.0); Lymphocytes % 25.5 % (15.3-44.8); MPV 7.6 fL (7.6-11.3); Monocytes % 5.6 % (3.3-12.3); RBC Red Blood Cell Count 4.35 M/uL (3.86-4.86)
--- NOTE | 2019-02-01 15:32 | RAD REPORT ---
EXAM DESCRIPTION: CT - Abdomen Pelvis W Contrast - 02/01/2019 3:17 pm CLINICAL HISTORY: Abdominal pain, history gastritis recently diagnosis COMPARISON: None. TECHNIQUE: Biphasic, helical CT imaging of the abdomen and pelvis was performed following 100 ml non -ionic IV contrast. Oral contrast was given. All CT scans are performed using dose optimization technique as appropriate and may include automated exposure control or mA/KV adjustment according to patient size. FINDINGS: No suspicious findings in the lung bases. Liver size is normal. Attenuation is borderline for fatty infiltration. In the subcapsular dome of th e liver right of midline there is a 2.5 centimeter oval low-density mass. Attenuation value at 60 Faye nsfield units is greater than typical for a simple cyst. No enhancement is seen. No other focal liver parenchymal finding. This is most likely an atypical cyst. No comparison imaging available. Long-ter m significance is doubtful. Pancreatic parenchyma is homogeneous. No discrete pancreatic mass and no peripancreatic stranding. No splenomegaly or focal splenic process seen. Gallbladder and biliary tree within normal limits. Galls tones can be occult on CT imaging. No suspicion for an active gallbladder process. Symmetric renal function is seen with no hydronephrosis or suspicious renal mass. No pyelonephritis o r acute parenchymal process. No bladder abnormalities. No adrenal abnormalities. Uterus and ovaries s how no suspicious findings. No gastric dilatation or gastric wall thickening identifiable. Gastric assessment is somewhat limited due to the absence content within the lumen. No edema or stranding in the fatty tissues adjacent to the stomach. No small bowel or large bowel dilatation. The appendix is normal. Sigmoid diverticulosis is present without diverticulitis. No free air, free fluid or inflammatory stranding. No hernia, mass or bulky lymphadenopathy. No acute bone finding. Calcifications are present in multiple disc levels. Mild facet joint degenerat gail changes are present. No pathologic bone process. IMPRESSION: No free air or other surgically emergent finding identifiable. No gross abnormality of the stomach identifiable. Assessment is somewhat limited by the absence of co ntent within the lumen. No abnormality in the adjacent fatty tissues. Gallbladder, biliary tree and pancreas show no suspicious findings. No acute GI process. Sigmoid diverticulosis present without diverticulitis.
[2019-02-01 15:41] LABS: Albumin 4.8 g/dL (3.4-5.0); Bilirubin Direct 0.2 mg/dL (0-0.2); Bilirubin Total 0.7 mg/dL (0.2-1.0); Potassium 4.5 mmol/L (3.5-5.1); Protein, Total 8.1 g/dL (6.4-8.2)
--- NOTE | 2019-02-01 16:36 | ER ---
Nurse's Notes [facility] Name: Robyn Key Age: 53 yrs Sex: Female : 1965 Arrival Date: 02/01/2019 Time: 14:03 Bed 13 Private MD: Mateo Jeong Diagnosis: Unspecified abdominal pain Presentation: 02/01 14:44 Presenting complaint: Patient states: i was here on Wednesday for abdominal pain and was tw2 diagnosed with gastritis, i aam having pain all over my abdomen, i am going to [place] Wednesday and i want to get it checked it out. Transition of care: patient was not received from another setting of care. Onset of symptoms was February 01, 2019. Risk Assessment: Do you want to hurt yourself or someone else? Patient reports no desire to harm self or others. Initial Sepsis Screen: Does the patient meet any 2 criteria? No. Patient's initial sepsis screen is negative. Does the patient have a suspected source of infection? No. Patient's initial sepsis screen is negative. Care prior to arrival: None. 14:44 Method Of Arrival: Ambulatory tw2 14:44 Acuity: MONA 3 tw2 Triage Assessment: 14:45 General: Appears in no apparent distress. Behavior is anxious. Pain: Complains of pain tw2 in abdomen. GI: Abdomen is flat, Reports lower abdominal pain, upper abdominal pain, "decreased appetite". 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 - Social history:: Smoking status: . - Ebola Screening: : Patient denies travel to an Ebola-affected area in the 21 days before illness onset. Screenin:52 Abuse screen: Denies threats or abuse. Denies injuries from another. Nutritional ph screening: No deficits noted. Tuberculosis screening: No symptoms or risk factors identified. Fall Risk None identified. Assessment: 15:30 General: Appears in no apparent distress. comfortable, well groomed, Behavior is calm, ph cooperative, appropriate for age, Denies fever, chills. Pain: Complains of pain in abdomen. Neuro: Level of Consciousness is awake, alert, obeys commands, Oriented to person, place, time, situation. Cardiovascular: Capillary refill < 3 seconds in bilateral fingers Patient's skin is warm and dry. Respiratory: Airway is patent Respiratory effort is even, unlabored, Respiratory pattern is regular, symmetrical. GI: Abdomen is non-distended, Bowel sounds present X 4 quads. Abd is soft and non tender X 4 quads. Reports upper abdominal pain, nausea, Patient currently denies diarrhea, vomiting. Derm: Skin is intact, is healthy with good turgor, Skin is pink, warm \\T\\ dry. Musculoskeletal: Circulation, motion, and sensation intact. Range of motion: intact in all extremities. 16:30 Reassessment: Patient appears in no apparent distress at this time. Patient and/or ph family updated on plan of care and expected duration. Pain level reassessed. Patient is alert, oriented x 3, equal unlabored respirations, skin warm/dry/pink. Pt resting quietly, VSS, will continue to monitor. Vital Signs: 14:45 BP 177 / 105; Pulse 77; Resp 17; Temp 97.3(TE); Pulse Ox 100% on R/A; Weight 76.2 kg tw2 (R); Height 5 ft. 10 in. (177.80 cm) (R); Pain 4/10; 14:48 BP 161 / 90; Pulse 69; Resp 17; tw2 16:34 BP 154 / 87; Pulse 65; Resp 16; Pulse Ox 98% on R/A; ph 14:45 Body Mass Index 24.11 (76.20 kg, 177.80 cm) tw2 ED Course: 14:03 Patient arrived in ED. mr 14:04 Mateo Jeong MD is Private Physician. mr 14:45 Triage completed. tw2 14:46 Arm band placed on. tw2 14:49 Jose Fox NP is [facility]. pm1 14:49 Rudi Christensen MD is Attending Physician. pm1 15:[address] via wheelchair. sw 15:07 Initial lab(s) drawn, by co, sent to lab. Inserted saline lock: 20 gauge in right em1 antecubital area, using aseptic technique. Blood collected. 15:10 Flores, Brandi, RN is Primary Nurse. 15:17 CT Abd/Pelvis - W/Contrast: IV contrast only In Process Unspecified. EDMS 15:52 Patient has correct armband on for positive identification. Bed in low position. Call light in reach. Side rails up X 1. Pulse ox on. NIBP on. Door closed. Noise minimized. Warm blanket given. 16:33 No provider procedures requiring assistance completed. ph 17:11 IV discontinued, intact, bleeding controlled, No redness/swelling at site. Pressure ss dressing applied. Administered Medications: No medications were administered Outcome: 16:36 Discharge ordered by MD. pm1 17:11 Discharged to home ambulatory. ss 17:11 Condition: good 17:11 Discharge instructions given to patient, Instructed on discharge instructions, follow up and referral plans. Demonstrated understanding of instructions, follow-up care. 17:11 Patient left the ED. Signatures: Dispatcher [employer] EDAZ Natalie Allen, Chao em1 Kimberley Malloy RN RN ss Hall, Patricia, RN RN Marissa Blanco Jose Fox, LEONEL TRANSPORT DRIVER pm1 Dalila Monzon RN RN tw2
--- NOTE | 2019-02-01 16:36 | EDPHYS ---
Physician Documentation [facility] Name: Robyn Key Age: 53 yrs Sex: Female : 1965 Arrival Date: 02/01/2019 Time: 14:03 Bed 13 Private MD: Mateo Jeong ED Physician Rudi Christensen HPI: 02/01 15:05 This 53 yrs old Female presents to ER via Ambulatory with complaints of pm1 Abdominal Pain. 15:05 The patient presents with abdominal pain in the right upper quadrant. Onset: The pm1 symptoms/episode began/occurred 2 day(s) ago. The symptoms do not radiate. Associated signs and symptoms: Pertinent negatives: nausea, vomiting, and diarrhea. The symptoms are described as achy. Modifying factors: The symptoms are alleviated by antacids, the symptoms are aggravated by nothing. Severity of pain: in the emergency department the pain has improved mildly. The patient has not experienced similar symptoms in the past. The patient has been recently seen at the [facility] Emergency Department, this week, for similar complaints labs were performed, dx with gastritis. 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 - Social history:: Smoking status: . - Ebola Screening: : Patient denies travel to an Ebola-affected area in the 21 days before illness onset. ROS: 15:05 Constitutional: Negative for fever, chills, and weight loss, Eyes: Negative for injury, pm1 pain, redness, and discharge, ENT: Negative for injury, pain, and discharge, Neck: Negative for injury, pain, and swelling, Cardiovascular: Negative for chest pain, palpitations, and edema, Respiratory: Negative for shortness of breath, cough, wheezing, and pleuritic chest pain. 15:05 Back: Negative for injury and pain, : Negative for injury, bleeding, discharge, and swelling, MS/Extremity: Negative for injury and deformity, Skin: Negative for injury, rash, and discoloration, Neuro: Negative for headache, weakness, numbness, tingling, and seizure. 15:05 Abdomen/GI: Positive for abdominal pain, Negative for nausea, vomiting, and diarrhea. Exam: 15:05 Constitutional: This is a well developed, well nourished patient who is awake, alert, pm1 and in no acute distress. Head/Face: Normocephalic, atraumatic. Eyes: Pupils equal round and reactive to light, extra-ocular motions intact. Lids and lashes normal. Conjunctiva and sclera are non-icteric and not injected. Cornea within normal limits. Periorbital areas with no swelling, redness, or edema. ENT: Nares patent. No nasal discharge, no septal abnormalities noted. Tympanic membranes are normal and external auditory canals are clear. Oropharynx with no redness, swelling, or masses, exudates, or evidence of obstruction, uvula midline. Mucous membranes moist. Neck: Trachea midline, no thyromegaly or masses palpated, and no cervical lymphadenopathy. Supple, full range of motion without nuchal rigidity, or vertebral point tenderness. No Meningismus. Chest/axilla: Normal chest wall appearance and motion. Nontender with no deformity. No lesions are appreciated. Cardiovascular: Regular rate and rhythm with a normal S1 and S2. No gallops, murmurs, or rubs. Normal PMI, no JVD. No pulse deficits. Respiratory: Lungs have equal breath sounds bilaterally, clear to auscultation and percussion. No rales, rhonchi or wheezes noted. No increased work of breathing, no retractions or nasal flaring. 15:05 Back: No spinal tenderness. No costovertebral tenderness. Full range of motion. Skin: Warm, dry with normal turgor. Normal color with no rashes, no lesions, and no evidence of cellulitis. MS/ Extremity: Pulses equal, no cyanosis. Neurovascular intact. Full, normal range of motion. 15:05 Abdomen/GI: Inspection: abdomen appears normal, Bowel sounds: normal, Palpation: soft, mild abdominal tenderness, in the right upper quadrant, mass, is not appreciated, rebound tenderness, is not appreciated. 15:05 Neuro: Orientation: is normal, Motor: is normal, moves all fours. Vital Signs: 14:45 BP 177 / 105; Pulse 77; Resp 17; Temp 97.3(TE); Pulse Ox 100% on R/A; Weight 76.2 kg tw2 (R); Height 5 ft. 10 in. (177.80 cm) (R); Pain 4/10; 14:48 BP 161 / 90; Pulse 69; Resp 17; tw2 16:34 BP 154 / 87; Pulse 65; Resp 16; Pulse Ox 98% on R/A; ph 14:45 Body Mass Index 24.11 (76.20 kg, 177.80 cm) tw2 MDM: 14:50 Patient medically screened. pm1 16:33 Data reviewed: vital signs. Data interpreted: Pulse oximetry: on room air is 100 %. pm1 Interpretation: normal. Counseling: I had a detailed discussion with the patient and/or guardian regarding: the historical points, exam findings, and any diagnostic results supporting the discharge/admit diagnosis, lab results, radiology results, the need for outpatient follow up, a body art technician, to return to the emergency department if symptoms worsen or persist or if there are any questions or concerns that arise at home. 02/01 14:50 Order name: Basic Metabolic Panel; Complete Time: 16:23 pm1 02/01 14:50 Order name: CBC with Diff; Complete Time: 15:34 pm1 02/01 14:50 Order name: Creatinine for Radiology; Complete Time: 16:23 pm02/01 14:50 Order name: Hepatic Function; Complete Time: 16:23 pm02/01 14:50 Order name: Lipase; Complete Time: 16:23 pm1 02/01 14:56 Order name: CT Abd/Pelvis - W/Contrast: IV contrast only; Complete Time: 15:34 pm02/01 14:50 Order name: IV Saline Lock; Complete Time: 15:06 pm02/01 14:50 Order name: Labs collected and sent; Complete Time: 15:06 pm1 Administered Medications: No medications were administered Disposition: 17:18 Co-signature as Attending Physician, Rudi Christensen MD I agree with the assessment and kdr plan of care. Disposition: 02/01/19 16:36 Discharged to Home. Impression: Unspecified abdominal pain. - Condition is Stable. - Discharge Instructions: Abdominal Pain, Adult. - Medication Reconciliation Form, Thank You Letter, Antibiotic Education, Prescription Opioid Use form. - Follow up: Emergency Department; When: As needed; Reason: Worsening of condition. Follow up: Private Physician; When: 2 - 3 days; Reason: Recheck today's complaints, Continuance of care, Re-evaluation by your physician. - Problem is new. - Symptoms have improved. Signatures: Dispatcher [employer] EDMS Rudi Christensen MD MD [facility] Kimberley Malloy RN RN ss Jose Fox, CHEESE WRAPPER CHEESE WRAPPER pm1 Dalila Monzon RN RN tw2 Corrections: (The following items were deleted from the chart) 17:11 16:36 02/01/2019 16:36 Discharged to Home. Impression: Unspecified abdominal pain. ss Condition is Stable. Forms are Medication Reconciliation Form, Thank You Letter, Antibiotic Education, Prescription Opioid Use. Follow up: Emergency Department; When: As needed; Reason: Worsening of condition. Follow up: Private Physician; When: 2 - 3 days; Reason: Recheck today's complaints, Continuance of care, Re-evaluation by your physician. Problem is new. Symptoms have improved. pm1
[2019-02-01 17:24] VITALS: TEMP 97.3
[2019-02-01 17:26] VITALS: BP 154/87; O2SAT 98
== END 2019-02-01 17:11 | disposition home or self-care (01) ==
LOC: ER 13:58
DX: R10.11 Right upper quadrant pain (principal); I10 Essential (primary) hypertension
CPT/HCPCS: 36415; 74177; 80048; 80076; 83690; 85025; 99284; Q9967

== ENCOUNTER 2019-05-24 11:22 | Emergency (ER) | payer OTHER ==
--- OUTSIDE RECORDS SUMMARY | 2019-05-24 11:24 | XMS REPORT ---
:1965 [facility] Address [address] [place] [address] Dr. Hernandez [address] [place] [id number] Care Team Providers Name Role Phone Unavailable Unavailable Unavailable Problems This patient has no known problems. Allergies, Adverse Reactions, Alerts This patient has no known allergies or adverse reactions. Medications This patient has no known medications.
--- OUTSIDE RECORDS SUMMARY | 2019-05-24 11:24 | XMS REPORT ---
:1965 Author Organization [employer] Care Team Providers Name Role Phone Fuentes, Na Provider Role Unavailable Allergies, Adverse Reactions, Alerts Substance Reaction Event Type N.K.D.A. Info Not Available Non Drug Allergy Problems Problem Type Condition Code Onset Dates Condition Status Problem Anxiety F41.9 Active Problem Postmenopausal disorder N95.1 Active Problem Elevated blood pressure reading in R03.0 Active office with white coat syndrome, without diagnosis of hypertension Problem Elevated blood pressure reading in I10 Active office with white coat syndrome, with diagnosis of hypertension Problem Primary insomnia F51.01 Active Problem History of colon polyps Z86.010 Active Problem Liver cyst K76.89 Active Problem Gastroesophageal reflux disease, K21.9 Active esophagitis presence not specified Problem Diverticulosis K57.90 Active Assessment Gastroesophageal reflux disease, K21.9 Active esophagitis presence not specified Assessment Primary insomnia F51.01 Active Assessment Elevated TSH R79.89 Active Assessment 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 Assessment Anxiety F41.9 Active Assessment Elevated glucose R73.09 Active Assessment Elevated blood pressure reading in R03.0 Active office with white coat syndrome, without diagnosis of hypertension Medications Medication Code Code Instructions Start End Status Dosage System Date Date Amitriptyline [facility] 10318881863 10 MG Orally May 05, Active 1 tablet at HCl Once a day 2018 bedtime Duloxetine HCl ND 31026950438 30 MG Orally March 16, Active 1 capsule Once a day 2019 Multivitamin [facility] 94312825262 - Orally Active as directed Adult Estroven NDC 0 Active not defined Fckpca-[id number]-Loxkp ND 0 800-500-20 Active 1 tablet nsic Factor MCG-MCG-MG Orally Once a day Pepcid ND 63732352869 20 MG Orally Active 1 tablet at Once a day bedtime Fish Oil ND 43768172789 1000 MG Orally Active 1 capsule Once a day Results No Known Results Summary Purpose [employer] Submission
[2019-05-24 12:32] LABS: Absolute Lymphocytes (CBC) 1.7 K/uL (0.7-4.9); Hematocrit 38.8 % (36.0-45.0); Lymphocytes % 23.9 % (15.3-44.8); MPV 7.8 fL (7.6-11.3); RBC Red Blood Cell Count 3.98 M/uL (3.86-4.86)
[2019-05-24 12:37] LABS: Albumin 4.3 g/dL (3.4-5.0); Bilirubin Direct 0.1 mg/dL (0-0.2); Bilirubin Total 0.4 mg/dL (0.2-1.0); Potassium 4.1 mmol/L (3.5-5.1); Protein, Total 7.9 g/dL (6.4-8.2)
[2019-05-24 12:53] LABS: Urine Blood NEGATIVE (NEG); Urine Glucose NEGATIVE (NEG); Urine Protein TRACE (NEG); Urine Specific Gravity 1.025 (1.005-1.030); Urine pH 5.5 (5.0-7.0)
--- NOTE | 2019-05-24 13:11 | RAD REPORT ---
EXAM DESCRIPTION: CT - Abdomen Pelvis W Contrast - 05/24/2019 1:00 pm CLINICAL HISTORY: Abdominal pain left-sided pain COMPARISON: none. TECHNIQUE: Computed axial tomography of the abdomen pelvis was obtained. 100 cc Isovue-300 was admin istered intravenously. Oral contrast was not requested which limits evaluation of bowel. All CT scans are performed using dose optimization technique as appropriate and may include automated exposure control or mA/KV adjustment according to patient size. FINDINGS: 25 millimeter intermediate density mass left lobe of liver unchanged. Spleen, pancreas, adrenal and kidneys appear unremarkable. Normal appendix. Diverticula stem from the colon. There is minimal stranding adjacent to the sigmoid colon. Increased density measuring 4.5 centimeter in width is present within the left lateral abdominal wall musculature at the level of the kidneys. IMPRESSION: Increased density measuring 4.5 centimeter in width is present within the left lateral a bdominal wall musculature at the level of the kidneys. This could either represent a hematoma or myos itis. Mild sigmoid diverticulitis
--- NOTE | 2019-05-24 13:46 | EDPHYS ---
Physician Documentation [facility] Name: Robyn Key Age: 53 yrs Sex: Female : 1965 Arrival Date: 05/24/2019 Time: 11:26 Bed 24 Private MD: Vivi Fuentes ED Physician Pete Almendarez HPI: 05/24 13:33 This 53 yrs old Female presents to ER via Ambulatory with complaints of jr8 abdominal pain. 13:33 Onset: The symptoms/episode began/occurred gradually, 2 day(s) ago. The symptoms do not jr8 radiate. Associated signs and symptoms: none. The symptoms are described as sharp, shooting, stabbing. Modifying factors: The symptoms are alleviated by nothing, the symptoms are aggravated by movement. Severity of pain: At its worst the pain was moderate in the emergency department the pain is unchanged. The patient has not experienced similar symptoms in the past. The patient has not recently seen a physician. Stated that she works out about 5 days a week. [place] a twinge on left lateral abdomen while running the other day. Since then has had increase in pain that is now not controlled with OTC medications . 13:34 The patient presents with abdominal pain in the left upper quadrant. jr8 Historical: - Allergies: 11:41 No Known Allergies; hb - Home Meds: 11:41 Amitriptyline Oral [Active]; hb 12:18 amlodipine 5 mg tab [Active]; mg2 - PMHx: 11:41 Hypertension; hb - PSHx: 11:41 L shoulder; hb - Immunization history:: Adult Immunizations up to date. - Social history:: Smoking status: Patient/guardian denies using tobacco. - Ebola Screening: : No symptoms or risks identified at this time. ROS: 13:33 Eyes: Negative for injury, pain, redness, and discharge, ENT: Negative for injury, jr8 pain, and discharge, Neck: Negative for injury, pain, and swelling, Cardiovascular: Negative for chest pain, palpitations, and edema, Respiratory: Negative for shortness of breath, cough, wheezing, and pleuritic chest pain, Back: Negative for injury and pain, MS/Extremity: Negative for injury and deformity, Skin: Negative for injury, rash, and discoloration, Neuro: Negative for headache, weakness, numbness, tingling, and seizure. 13:33 Abdomen/GI: Positive for abdominal pain, Negative for nausea, vomiting, and diarrhea, abdominal distension, anorexia, dysphagia, hematemesis, black/tarry stool, rectal pain, rectal bleeding, bowel incontinence, flatulence. Exam: 13:33 Eyes: Pupils equal round and reactive to light, extra-ocular motions intact. Lids and jr8 lashes normal. Conjunctiva and sclera are non-icteric and not injected. Cornea within normal limits. Periorbital areas with no swelling, redness, or edema. ENT: Nares patent. No nasal discharge, no septal abnormalities noted. Tympanic membranes are normal and external auditory canals are clear. Oropharynx with no redness, swelling, or masses, exudates, or evidence of obstruction, uvula midline. Mucous membranes moist. Neck: Trachea midline, no thyromegaly or masses palpated, and no cervical lymphadenopathy. Supple, full range of motion without nuchal rigidity, or vertebral point tenderness. No Meningismus. Chest/axilla: Normal chest wall appearance and motion. Nontender with no deformity. No lesions are appreciated. Cardiovascular: Regular rate and rhythm with a normal S1 and S2. No gallops, murmurs, or rubs. Normal PMI, no JVD. No pulse deficits. Respiratory: Lungs have equal breath sounds bilaterally, clear to auscultation and percussion. No rales, rhonchi or wheezes noted. No increased work of breathing, no retractions or nasal flaring. Back: No spinal tenderness. No costovertebral tenderness. Full range of motion. Skin: Warm, dry with normal turgor. Normal color with no rashes, no lesions, and no evidence of cellulitis. MS/ Extremity: Pulses equal, no cyanosis. Neurovascular intact. Full, normal range of motion. Neuro: Awake and alert, GCS 15, oriented to person, place, time, and situation. Cranial nerves II-XII grossly intact. Motor strength 5/5 in all extremities. Sensory grossly intact. Cerebellar exam normal. Normal gait. 13:33 Abdomen/GI: Inspection: abdomen appears normal, Bowel sounds: active, all quadrants, Palpation: soft, in all quadrants, moderate abdominal tenderness, in the anterior aspect of left lateral abdomen, Indicators: McBurney's point is not tender, Rhodes's sign is negative, Rovsing's sign is negative, Liver: tenderness, is not appreciated. Vital Signs: 11:41 BP 169 / 100; Pulse 86; Resp 16; Temp 97.4; Pulse Ox 100% on R/A; Weight 78.02 kg; hb Height 5 ft. 10 in. (177.80 cm); Pain 10/10; 12:18 BP 168 / 92; Pulse 74; Resp 18; Pulse Ox 98% on R/A; Pain 7/10; mg2 14:04 BP 150 / 70; Pulse 75; Resp 18; Temp 98; Pulse Ox 100% on R/A; mg2 11:41 Body Mass Index 24.68 (78.02 kg, 177.80 cm) hb MDM: 11:56 Patient medically screened. jr8 13:33 Data reviewed: vital signs, nurses notes, lab test result(s), radiologic studies, CT jr8 scan. Data interpreted: Pulse oximetry: on room air is 98 %. Interpretation: normal. Counseling: I had a detailed discussion with the patient and/or guardian regarding: the historical points, exam findings, and any diagnostic results supporting the discharge/admit diagnosis, lab results, radiology results, the need for outpatient follow up, a general surgeon, to return to the emergency department if symptoms worsen or persist or if there are any questions or concerns that arise at home. ED course: Based on patients reported daily activities. Most likely hematoma and not myositis from what the CT read out showed. Patient has no LLQ abdominal pain to indicated diverticulitis either. No elevation in WBC count and no fever. Again less likely to be myositis. Recommend rest for next couple of weeks with no exercise. Ice and pain medicine. To f/u with General surgery to make sure it is clearing up. If worse or other symptoms were to evolve to come back to ED. Patient good with this plan . 05/24 12:04 Order name: Basic Metabolic Panel; Complete Time: 12:39 05/24 12:04 Order name: CBC with Diff; Complete Time: 12:34 05/24 12:04 Order name: Creatinine for Radiology; Complete Time: 12:37 05/24 12:04 Order name: Hepatic Function; Complete Time: 12:39 05/24 12:04 Order name: Lipase; Complete Time: 12:39 05/24 12:47 Order name: Urine Dipstick--Ancillary (enter results) bd 05/24 12:04 Order name: IV Saline Lock; Complete Time: 12:15 jr8 05/24 12:04 Order name: Labs collected and sent; Complete Time: 12:15 jr8 05/24 12:04 Order name: Urine Dipstick-Ancillary (obtain specimen); Complete Time: 12:15 jr8 05/24 12:04 Order name: CT Abd/Pelvis - IV Contrast Only; Complete Time: 13:16 jr8 Administered Medications: No medications were administered Disposition: 16:03 Co-signature as Attending Physician, Pete Almendarez MD. rn Disposition: 05/24/19 13:45 Discharged to Home. Impression: Hematoma Left abdominal wall . - Condition is Stable. - Discharge Instructions: Hematoma. - Prescriptions for Tylenol- Codeine #3 300-30 mg Oral Tablet - take 2 tablets by ORAL route every 6 hours As needed; 20 tablet. - Medication Reconciliation Form, Thank You Letter, Antibiotic Education, Prescription Opioid Use form. - Follow up: Timothy Parra MD; When: 5 - 6 days; Reason: Recheck today's complaints, Continuance of care, Re-evaluation by your physician. - Problem is new. - Symptoms have improved. Signatures: Dispatcher [employer] EDMS Pete Almendarez MD MD rn Roszak, Josh, PA PA jr8 Tawana Rodrigues RN RN Afshin Daniel RN RN mg2 Corrections: (The following items were deleted from the chart) 13:38 13:33 This 53 yrs old Female presents to ER via Ambulatory with complaints of jr8 Flank Pain. jr8 14:05 13:45 05/24/2019 13:45 Discharged to Home. Impression: Hematoma Left abdominal wall . mg2 Condition is Stable. Forms are Medication Reconciliation Form, Thank You Letter, Antibiotic Education, Prescription Opioid Use. Follow up: Timothy Parra; When: 5 - 6 days; Reason: Recheck today's complaints, Continuance of care, Re-evaluation by your physician. Problem is new. Symptoms have improved. jr8
--- NOTE | 2019-05-24 13:46 | ER ---
Nurse's Notes [facility] Name: Robyn Key Age: 53 yrs Sex: Female : 1965 Arrival Date: 05/24/2019 Time: 11:26 Bed 24 Private MD: Vivi Fuentes Diagnosis: Hematoma Left abdominal wall Presentation: 05/24 11:40 Presenting complaint: Worsening left flank pain x 4 days. Denies fever/urinary s/s. hb Transition of care: patient was not received from another setting of care. Onset of symptoms was May 21, 2019. Risk Assessment: Do you want to hurt yourself or someone else? Patient reports no desire to harm self or others. Initial Sepsis Screen: Does the patient meet any 2 criteria? No. Patient's initial sepsis screen is negative. Does the patient have a suspected source of infection? No. Patient's initial sepsis screen is negative. Care prior to arrival: Medication(s) given: Motrin, at 1000. 11:40 Method Of Arrival: Ambulatory hb 11:40 Acuity: MONA 3 hb Historical: - Allergies: 11:41 No Known Allergies; hb - Home Meds: 11:41 Amitriptyline Oral [Active]; hb 12:18 amlodipine 5 mg tab [Active]; mg2 - PMHx: 11:41 Hypertension; hb - PSHx: 11:41 L shoulder; hb - Immunization history:: Adult Immunizations up to date. - Social history:: Smoking status: Patient/guardian denies using tobacco. - Ebola Screening: : No symptoms or risks identified at this time. Screenin:17 Abuse screen: Denies threats or abuse. Denies injuries from another. Nutritional mg2 screening: No deficits noted. Tuberculosis screening: No symptoms or risk factors identified. Fall Risk IV access (20 points). Assessment: 12:15 General: Appears in no apparent distress. comfortable, Behavior is calm, cooperative. mg2 Pain: Complains of pain in left flank Pain does not radiate. Pain currently is 7 out of 10 on a pain scale. Quality of pain is described as aching, Pain began gradually, 2-3 days ago. Is intermittent. Neuro: Level of Consciousness is awake, alert, obeys commands, Oriented to person, place, time, situation. Cardiovascular: Capillary refill < 3 seconds Patient's skin is warm and dry. Respiratory: Airway is patent Respiratory effort is even, unlabored, Respiratory pattern is regular, symmetrical. GI: No signs and/or symptoms were reported involving the gastrointestinal system. : Reports pain in left flank(s). EENT: No signs and/or symptoms were reported regarding the EENT system. Derm: Skin is intact, is healthy with good turgor, Skin is pink, warm \T\ dry. normal. Musculoskeletal: Circulation, motion, and sensation intact. Capillary refill < 3 seconds. Vital Signs: 11:41 BP 169 / 100; Pulse 86; Resp 16; Temp 97.4; Pulse Ox 100% on R/A; Weight 78.02 kg; hb Height 5 ft. 10 in. (177.80 cm); Pain 10/10; 12:18 BP 168 / 92; Pulse 74; Resp 18; Pulse Ox 98% on R/A; Pain 7/10; mg2 14:04 BP 150 / 70; Pulse 75; Resp 18; Temp 98; Pulse Ox 100% on R/A; mg2 11:41 Body Mass Index 24.68 (78.02 kg, 177.80 cm) hb ED Course: 11:26 Patient arrived in ED. mr 11:26 Vivi Fuentes MD is Private Physician. mr 11:40 Triage completed. hb 11:41 Arm band placed on right wrist. hb 11:54 Raúl Shaw PA is PHCP. jr8 11:54 Pete Almendarez MD is Attending Physician. jr8 11:56 Afshin Daniel, CALLY is Primary Nurse. mg2 12:17 Patient has correct armband on for positive identification. Pulse ox on. NIBP on. Door mg2 closed. Warm blanket given. 12:17 No provider procedures requiring assistance completed. Inserted saline lock: 20 gauge mg2 in right antecubital area, using aseptic technique. Blood collected. 13:00 CT Abd/Pelvis - IV Contrast Only In Process Unspecified. EDMS 13:45 Timothy Parra MD is Referral Physician. jr8 14:04 IV discontinued, intact, bleeding controlled, No redness/swelling at site. Pressure mg2 dressing applied. Administered Medications: No medications were administered Outcome: 13:45 Discharge ordered by . jr8 14:05 Discharged to home ambulatory. mg2 14:05 Condition: stable 14:05 Discharge instructions given to patient, Instructed on discharge instructions, follow up and referral plans. medication usage, Demonstrated understanding of instructions, follow-up care, medications, Prescriptions given X 1. 14:05 Patient left the ED. mg2 Signatures: Dispatcher [employer] LINCOLNTN AlejandroNatalie ValeriaRaúl PA PA jr8 Tawana Rodrigues, RN RN Afshin Daniel RN RN mg2
[2019-05-24 14:39] VITALS: BP 150/70; TEMP 98; O2SAT 100
== END 2019-05-24 14:05 | disposition home or self-care (01) ==
LOC: ER 11:22
DX: S30.1XXA Contusion of abdominal wall, initial encounter (principal); Y93.02 Activity, running; I10 Essential (primary) hypertension
CPT/HCPCS: 36415; 74177; 80048; 80076; 81003; 83690; 85025; Q9967

== ENCOUNTER 2019-11-02 06:43 | Day surgery (SDC) | payer OTHER ==
--- NOTE | 2019-10-26 11:07 | RAD REPORT ---
EXAM DESCRIPTION: Carmen Marques (2 Views)10/26/2019 10:57 am CLINICAL HISTORY: Preop for foot surgery COMPARISON: November 2018 FINDINGS: The lungs appear clear of acute infiltrate. The heart is normal size IMPRESSION: No acute abnormalities displayed
[2019-10-26 12:24] LABS: Absolute Lymphocytes (CBC) 1.6 K/uL (0.7-4.9); Lymphocytes % 31.6 % (15.3-44.8); MPV 8.2 fL (7.6-11.3); RBC Red Blood Cell Count 4.08 M/uL (3.86-4.86)
[2019-10-26 12:25] LABS: Potassium 4.4 mmol/L (3.5-5.1)
[2019-10-26 12:40] LABS: Urine Appearance CLEAR; Urine Bilirubin NEGATIVE (NEG); Urine Blood NEGATIVE (NEG); Urine Color YELLOW; Urine Glucose NEGATIVE (NEG); Urine Microscopic Reflex NO UMIC; Urine Protein NEGATIVE (NEG); Urine Urobilinogen 0.2 mg/dL (0.2-1.0); Urine pH 6.5 (5.0-7.0)
[2019-10-26 13:20] LABS: Protime INR 0.96
--- NOTE | 2019-10-27 06:45 | EKG ---
Test Date: 2019-10-26 Test Time: 10:38:14 Bucket Pusher: LUZMARIA MEASUREMENT RESULTS: Intervals: Rate: 64 VT: 190 QRSD: 78 QT: 406 QTc: 418 Wendel: P: 51 VT: 190 QRS: 60 T: 52 INTERPRETIVE STATEMENTS: Normal sinus rhythm Normal ECG Compared to ECG 01/30/2019 07:46:22 No significant changes Electronically Signed On 10-27-19 06:43:37 HAND BINDER STRIPPER by Errol Rios
--- NOTE | 2019-11-01 15:29 | PREOPHP ---
Date of Admission: 10/26/2019 History Of Present Illness: This patient presented to my office with a chief complaint of a painful bunion present on the right foot and painful second toe on the right foot. Patient is active with wo rking out daily, running, aerobics, etc. Pain is throbbing in nature, moderate in severity, present for months, worse with activity, improved with rest. Patient has modified her shoe gear, taken over- the-counter anti-inflammatories, all to no avail and requests evaluation. Past Medical History: Anxiety only. Current Medications: Turmeric 400 mg, fish oil 1000 mg, vitamin D3, and amitriptyline 10 mg as neede d. Allergies: NKDA. Surgical History: Shoulder repair. Social History: Patient denies smoking. Admits to occasional wine use. Family History: Positive for gout and hypertension in her father. Cancer in her mother. Physical Examination: Vital Signs: Patient's weight is 171 pounds, height 5 feet 10 inches. General: Patient is healthy, well developed, well nourished, well oriented x3. Vascular: Evaluation reveals dorsalis pedis and posterior tibial pulses to be 4/4 bilaterally. Capi llary refill time is less than 3 seconds. Temperature gradient is within normal limits. There is no edema or claudication noted bilaterally. No complaints of signs of DVT bilaterally. Musculoskeletal: Evaluation reveals flexible cavus foot type bilaterally. Subtalar joint shows incr eased varus and forefoot adductus bilaterally. There is a medial eminence of the first metatarsal he ad with range of motion to 70 degrees on the right and 80 degrees on the left. There is hallux valgu s noted bilaterally. The Equinus is noted to be 0 bilaterally per goniometer measurement. There is also mild tailor bunion deformity noted bilaterally. The digits of both feet are noted to be contrac cora at the second PIPJ, semi-rigid in nature; third, flexible in nature bilaterally. Muscle, knee, a nd ankle assessment are within normal limits. There are no subcutaneous soft tissue masses noted roshan aterally. Skin: Evaluation reveals no rash, ulcer, tumor, or contracture. There is callus present on the plan tar aspect of the foot sub 1, 2, and 5 MPJs bilaterally. No redness, swelling, temp, or drainage not ed. Neurologic: Evaluation reveals deep tendon reflexes for the patella and Achilles to be 5/5 bilateral ly. Vibratory and sharp dull sensation within normal limits. Imaging: X-ray evaluation of the right foot reveals no fracture, tumor, or DJD noted. Bones are wel l mineralized. Calcaneal inclination angle is within normal limits as well as the talocalcaneal angl e. First metatarsal is slightly dorsiflexed. Lesser metatarsals are well aligned. There is an infe rior calcaneal spur present. There is a lateral deviation of the hallux and sesamoids with increase in the intermetatarsal angle of 14 degrees and hallux abductus angle of 21 degrees. There is an ossi bartolo present in the first MPJ dorsally with mild spurring of the first metatarsal head dorsally and ta lonavicular sag noted. Diagnoses: Hallux valgus deformity, right foot; hammertoe deformity, second digit right foot; pain i n right foot and ankle joints. Treatment Plan: Patient was educated on the bunion correction with an Bashir bunionectomy, plantar f lexor in nature including the options for fixation were discussed. Also, hammertoe fusion of the sec ond toe at the PIPJ was discussed with the patient on the right foot. Patient requests surgical snoia gement due to lack of response to conservative care. The patient understands risks, benefits, and al ternatives of the above-mentioned procedure including, but not limited to the risk of pain, swelling, numbness, stiffness, infection, nonhealing of skin and bone, recurrence of the deformity, and the ri sk of DVT and PE have been explained to the patient as well as the signs and symptoms. Patient under stands the need for orthotic devices postoperatively to help maintain correction and decrease the ris k of recurrence of the deformity. Patient is scheduled for surgery at [facility] on November 02, 2019. Preoperative labs have been performed. Medical H and P will be complet ed by Anesthesia. ROMULO Voice ID: [id number]
--- OUTSIDE RECORDS SUMMARY | 2019-11-02 06:45 | XMS REPORT ---
:1965 [facility] Address [address] [place] [address] Dr. Hernandez [address] [place] [id number] Care Team Providers Name Role Phone Unavailable Unavailable Unavailable Problems This patient has no known problems. Allergies, Adverse Reactions, Alerts This patient has no known allergies or adverse reactions. Medications This patient has no known medications.
--- OUTSIDE RECORDS SUMMARY | 2019-11-02 06:46 | XMS REPORT ---
:1965 Author Organization [employer] Care Team Providers Name Role Phone Fuentes, Na Provider Role Unavailable Allergies No Known Allergies Problems Problem Type Condition Code Onset Dates Condition Status Problem Liver cyst K76.89 Active Problem Diverticulosis K57.90 Active Problem History of colon polyps Z86.010 Active Problem Elevated TSH R79.89 Active Problem Thyroid antibody positive R76.8 Active Problem Pure hypercholesterolemia E78.00 Active Problem Elevated blood pressure reading in I10 Active office with white coat syndrome, with diagnosis of hypertension Problem Gastroesophageal reflux disease, K21.9 Active esophagitis presence not specified Problem Primary insomnia F51.01 Active Problem Elevated blood pressure reading in R03.0 Active office with white coat syndrome, without diagnosis of hypertension Assessment UTI (urinary tract infection) N39.0 Active Assessment Microscopic hematuria R31.29 Active Problem Postmenopausal disorder N95.1 Active Assessment Urinary frequency R35.0 Active Problem Anxiety F41.9 Active Medications Medication Code Code Instructions Start End Status Dosage System Date Date Duloxetine HCl [facility] 44793645466 30 MG Orally March 16, Active 1 capsule Once a day 2018 Pepcid [facility] 53654252817 20 MG Orally Active 1 tablet at Once a day bedtime Multivitamin [facility] 27957953553 - Orally Active as directed Adult Fish Oil ND 54312508145 1000 MG Orally Active 1 capsule Once a day Estroven ND 0 Active not defined Bhvxyv-G06-Nywxo [facility] 0 800-500-20 Active 1 tablet nsic Factor MCG-MCG-MG Orally Once a day Amitriptyline ND 36274492196 10 MG Orally Active 1 tablet at HCl Once a day bedtime Macrobid [facility] 18389884676 100 MG Orally Active 1 capsule every 12 hrs with food Results Name Result Date Reference Range Unit Abnormality Flag CULTURE, URINE, ROUTINE ----CULTURE, URINE, ROUTINE SEE NOTE [id number] Summary Purpose [facility]
--- OUTSIDE RECORDS SUMMARY | 2019-11-02 06:46 | XMS REPORT ---
:1965 Author Organization [employer] Care Team Providers Name Role Phone Fuentes, Na Provider Role Unavailable Allergies No Known Allergies Problems Problem Type Condition Code Onset Dates Condition Status Problem Liver cyst K76.89 Active Problem Diverticulosis K57.90 Active Problem History of colon polyps Z86.010 Active Problem Postmenopausal disorder N95.1 Active Problem Anxiety F41.9 Active Problem Elevated TSH R79.89 Active Problem [...] coat syndrome, without diagnosis of hypertension Medications No Known Medications Results No Known Results Summary Purpose [facility] Submission
--- OUTSIDE RECORDS SUMMARY | 2019-11-02 06:46 | XMS REPORT ---
[...] Medications Results No Known Results Summary Purpose [employer] Submission
--- OUTSIDE RECORDS SUMMARY | 2019-11-02 06:46 | XMS REPORT ---
[...] without diagnosis of hypertension Medications Medication Code System Code Instructions Start End Date Status Dosage Date [facility] 25770463593 20 MG Orally Active 1 tablet at Once a day bedtime Results No Known Results Summary Purpose [employer] Submission
--- OUTSIDE RECORDS SUMMARY | 2019-11-02 06:46 | XMS REPORT ---
:1965 Author Organization [employer] Care Team Providers Name Role Phone Fuentes, Na Provider Role Unavailable Allergies No Known Allergies Problems Problem Type Condition Code Onset Dates Condition Status Problem Liver cyst K76.89 Active Problem Diverticulosis K57.90 Active Problem History of colon polyps Z86.010 Active Assessment Anxiety F41.9 Active Problem Postmenopausal disorder N95.1 [...] End Status Dosage System Date Date Amitriptyline HCl [facility] 64499004624 10 MG Orally Active 1 tablet Once a day at bedtime Results No Known Results Summary Purpose [employer] Submission
--- OUTSIDE RECORDS SUMMARY | 2019-11-02 06:46 | XMS REPORT ---
[...] coat syndrome, without diagnosis of hypertension Assessment Pelvic pressure in female R10.2 Active Assessment Microscopic hematuria R31.29 Active Problem Postmenopausal disorder N95.1 Active Assessment Urinary frequency R35.0 Active Problem Anxiety F41.9 Active Medications Medication Code Code Instructions Start End Status Dosage System Date Date Duloxetine HCl [facility] 73165976750 30 MG Orally March 16, Active 1 capsule Once a day 2018 Estroven NDC 0 Active not defined Sxmmtt-O52-Lifxe ND 0 800-500-20 Active 1 tablet nsic Factor MCG-MCG-MG Orally Once a day Fish Oil ND 91490775598 1000 MG Orally Active 1 capsule Once a day Pepcid [facility] 40300155517 20 MG Orally Active 1 tablet at Once a day bedtime Amitriptyline ND 01156499708 10 MG Orally Active 1 tablet at HCl Once a day bedtime Macrobid [facility] 03116944332 100 MG Orally Active 1 capsule every 12 hrs with food Multivitamin ND 34267323371 - Orally Active as directed Adult Results Name Result Date Reference Range Unit Abnormality Flag URINALYSIS AUTO W/O SCOPE ([id number]) ----KIERRA neg [id number] ----NIT neg [id number] ----PROTEIN neg [id number] ----pH 7.0 20191003 ----GLUCOSE neg [id number] ----KETONES trace [id number] ----SPECIFIC GRAVITY 1.010 20191003 ----BLO neg [id number] Summary Purpose [employer] Submission
--- OUTSIDE RECORDS SUMMARY | 2019-11-02 06:46 | XMS REPORT ---
:1965 Author Organization [employer] Care Team Providers Name Role Phone Fuentes, Na Provider Role Unavailable Allergies No Known Allergies Problems Problem Type Condition Code Onset Dates Condition Status Problem Liver cyst K76.89 Active Problem Diverticulosis K57.90 Active Problem History of colon polyps Z86.010 Active Problem Elevated TSH R79.89 Active Assessment Gastroesophageal reflux disease, K21.9 Active esophagitis presence not specified Problem Thyroid antibody positive R76.8 Active Problem Pure hypercholesterolemia E78.00 Active Problem Elevated blood pressure reading in I10 Active office with white coat syndrome, with diagnosis of hypertension Problem Gastroesophageal reflux disease, K21.9 Active esophagitis presence not specified Problem Primary insomnia F51.01 Active Problem Elevated blood pressure reading in R03.0 Active office with white coat syndrome, without diagnosis of hypertension Assessment Primary insomnia F51.01 Active Assessment Elevated TSH R79.89 Active Assessment Elevated blood pressure reading in R03.0 Active office with white coat syndrome, without diagnosis of hypertension Assessment Elevated glucose R73.09 Active Assessment Thyroid antibody positive R76.8 Active Assessment Anxiety F41.9 Active Problem Postmenopausal disorder N95.1 Active Assessment Pure hypercholesterolemia E78.00 Active Problem Anxiety F41.9 Active Medications Medication Code Code Instructions Start End Status Dosage System Date Date Pepcid [facility] 02689621485 20 MG Orally Active 1 tablet at Once a day bedtime Estroven NDC 0 Active not defined Multivitamin ND 62937575080 - Orally Active as directed Adult Ksxzzk-Z46-Kivat ND 0 800-500-20 Active 1 tablet nsic Factor MCG-MCG-MG Orally Once a day Amitriptyline ND 40356617144 10 MG Orally Active 1 tablet at HCl Once a day bedtime Duloxetine HCl ND 11310427234 30 MG Orally March 16, Active 1 capsule Once a day 2018 Fish Oil ND 97393385373 1000 MG Orally Active 1 capsule Once a day Results No Known Results Summary Purpose [employer] Submission
[2019-11-02] MEDS ORDERED: LIDOCAINE 1% MPF 5 ML VIAL ONE (07:11)
[2019-11-02] MEDS ORDERED: FENTANYL CITR 100 MCG/2 ML ONE (07:11)
[2019-11-02] MEDS ORDERED: propofoL 200 MG/20 ML VIAL IV ONE ×2 (07:11→08:22)
[2019-11-02] MEDS ORDERED: MIDAZOLAM HCL 2 MG/2 ML INJ ONE (07:11)
[2019-11-02] MEDS ORDERED: LIDOCAINE 1% MPF 30 ML VIAL ONE (07:14)
[2019-11-02] MEDS ORDERED: CEFAZOLIN/SWI 1gm 1 GM/10 ML SYR ONE (07:16)
[2019-11-02] MEDS ORDERED: Ringers Lactate 1,000 ML IV ONE (07:16)
[2019-11-02] MEDS ORDERED: MINERAL OIL, LITE 10 ML VIAL ONE (07:17)
[2019-11-02] MEDS ORDERED: BACITRACIN OINTMENT 15 GM TUBE TOP ONE (07:17)
[2019-11-02] MEDS ORDERED: LIDOCAINE 1% W/EPI 1:100,000 MDV 20 ML VIAL ONE (07:18)
[2019-11-02] MEDS ORDERED: OXYMETAZOLINE HCL 0.05% 15ML NAS ONE (07:18)
[2019-11-02] MEDS ORDERED: ONDANSETRON 4 MG/2 ML VIAL ONE (07:50)
[2019-11-02] MEDS ORDERED: KETOROLAC 30 MG/ML INJ ONE (07:50)
[2019-11-02 09:52] VITALS: O2SAT 99
[2019-11-02 10:02] VITALS: TEMP 97.8
[2019-11-02] MEDS ORDERED: HYDROCODONE/APAP 7.5/325 MG TAB ONE (10:23)
--- NOTE | 2019-11-02 10:27 | RAD REPORT ---
EXAM DESCRIPTION: RAD - Foot Right 3 View - 11/02/2019 10:04 am CLINICAL HISTORY: s/p right bunionectomy and hammer toe sx COMPARISON: No comparisons FINDINGS: Postsurgical changes involve the distal first metatarsal. Fusion hardware is present inocencio ing the PIP joint of the second toe. Large plantar calcaneal spur evident.
[2019-11-02 15:45] VITALS: BP 132/63
--- NOTE | 2019-11-02 20:08 | OP ---
Date of Procedure: 11/02/2019 Surgeon: Aly Paul DPM Preoperative Diagnoses: 1.Hallux valgus deformity. 2.Hammertoe contracture, second digit of right foot. Postoperative Diagnoses: 1.Hallux valgus deformity. 2.Hammertoe contracture, second digit of right foot. Procedures: 1.Plantarflexory Bashir bunionectomy at the first metatarsal head with SonicPin fixation, right foot . 2.Arthroplasty with fusion, second toe proximal interphalangeal joint, right foot. 3.Tenotomy, capsulotomy, second metatarsophalangeal joint, right foot. Anesthesia: General. Description Of Procedure: The patient was brought into the operating room, placed on the operating t able in supine position, and general anesthesia was induced. The patient was prepped and draped in u sual sterile manner and the right leg was elevated to 60 degrees. An Esmarch bandage was applied to exsanguinate the blood supply. Pneumatic ankle tourniquet was elevated to 250 mmHg. Attention was t hen directed to the first MPJ of the right foot and procedure #1 was performed. A 5 cm dorsal linear incision was made overlying the first MPJ and deepened via sharp and blunt dissection down to the le kath of capsule. All neurologic structures were avoided. All bleeders were clamped and bovied. An i nverted L incision was made in the capsule of the first MPJ and dissected free from its bony attachme nts. It will be noted that there was moderate degenerative cartilaginous tissue debris on the dorsal surface of the first metatarsal head and there was mild cartilage degeneration and thinning on the f irst metatarsal head. The capsular tissue was free from its bony attachments. The medial eminence w as brought into view and resected utilizing an oscillating saw. All dorsal spurring was removed util izing a rongeur and an ossicle was removed from the joint capsule area. The first interspace was the n approached and a lateral capsulotomy, abduct tenotomy, and EHB tenotomy was performed. The foot wa s then repositioned with the knee bent and an osteotomy was created in the head of the first metatars al with the apex distally and arms proximal angulated from dorsal medial to plantar lateral with the apex of the V cut. Utilizing an oscillating saw, the cut was performed from medial to lateral in saurabh hnique described. The capital fragment was then shifted laterally and plantarly and impacted mediall y upon the shaft of the first metatarsal. The remaining eminence was removed utilizing oscillating s aw. Utilizing SonicPin fixation device, a K-wire was drilled to fixate the head upon the shaft. It was measured 22 mm. The hole was then drilled. The pin was removed and the SonicPin was placed and utilizing the paddle, pressure was then applied. The pin was sunk into the hole compressing the 2 fr agments. The pin was then unscrewed from its hand-held device and seen to be in satisfactory placeme nt and good compression without movement. All rough edges were smoothed with a rotary bur. The dors al surface of the first metatarsal head was then smoothed utilizing a rotary bur and rounded. The ar ea was flushed with copious amounts of sterile saline. A medial capsulorrhaphy was then performed ut ilizing a #15 blade with the toe held in corrected position. The capsular tissue was then reapproxim ated utilizing 2-0 Vicryl suture. Skin was reapproximated utilizing 4-0 Prolene horizontal mattress suture. Excellent range of motion in the rectus alignment was obtained to 80 degrees. Procedure #2; the second toe was then approached. 2 Semi-elliptical incisions were made 2 cm in length and a wedg e of skin was removed. The soft tissue was then freed from capsular attachments and the extensor dig itorum longus tendon was then transversely cut at the level of the PIPJ and reflected proximally. Ut ilizing a #15 blade, it was reflected all the way to the MPJ to loosen it. The articular surface of the proximal phalanx was then removed utilizing the oscillating saw as well as the base of the middle phalanx articular surface utilizing an oscillating saw. The toe was still seen to be contracted at the MPJ, so a stab incision was made. The proximal phalanx was still seen to be contracted at the MP J and procedure #3 was performed with a stab incision with a #15 blade at the medial aspect of the se cond MPJ. Utilizing a curved hemostat, the extensor digitorum longus tendon was isolated and transve rsely cut, a capsulotomy was then performed dorsally. The proximal phalanx was seen to be in better rectus alignment with the metatarsal shaft. The holes were then drilled in the proximal and middle p halanx. Broaches were used and the 19 mm angled Smart Toe was then implanted in the proximal phalanx and retrograded into the middle phalanx with excellent ruft-md-ijen contact. The area was flushed w ith copious amounts of sterile saline. Tendon was trimmed and reapproximated utilizing 3-0 Vicryl barrios ture. The skin was reapproximated utilizing 4-0 Prolene horizontal and simple suturing. The toe was seemed to be in good rectus alignment with only a 10-degree contracture as designed. The areas were then injected with a total of 12 cc of 0.5% Marcaine plain for anesthesia. The foot was then dresse d with Adaptic, dry sterile gauze, Kerlix, cold therapy pad, and Kimani bandaging. Pneumatic ankle tour niquet was released and capillary return was seen to be instantaneous to all digits. The second toe was then further braced with 1 inch Coban. The patient will be followed in my office for postoperati ve care and was sent to Recovery in satisfactory condition. SUNNY/RENEE Voice ID: [id number] Report ID: [id number]
--- NOTE | 2019-11-03 08:04 | DS ---
Date of Discharge: 11/02/2019 Date Of Surgery: 11/02/2019. Surgeon: Aly Paul DPM Preoperative Diagnoses: Hallux valgus deformity, hammertoe deformity, second digit, all right foot. Procedures: 1.Plantarflexory Bashir bunionectomy at the metatarsal head with SonicPin fixation, right foot. 2.Hammertoe fusion of the second toe with Smart Toe implant, 19 mm angled, right foot. 3.Tenotomy and capsulotomy, second MPJ, metatarsophalangeal joint, right foot. Hospital Course: The patient tolerated the procedure and anesthesia well. Patient will be discharge d to home in satisfactory condition for anesthesia guidelines. Patient may ambulate in a postop shoe . The patient has postop pain medication, written instructions, and cold therapy unit instructions. The patient will be followed in my office for postoperative care in 1 week. SUNNY/RENEE Voice ID: [id number] Report ID: [id number]
== END 2019-11-02 11:30 | disposition home or self-care (01) ==
LOC: PRE 06:43
PROVIDERS: ATTEND Podiatrist
PROC: 0SGP0JZ Fusion of Right Toe Phalangeal Joint with Synthetic Substitute, Open Approach (ICD-10-PCS; 2019-11-02)
PROC: 0SNM0ZZ Release Right Metatarsal-Phalangeal Joint, Open Approach (ICD-10-PCS; 2019-11-02)
PROC: 0LQV0ZZ Repair Right Foot Tendon, Open Approach (ICD-10-PCS; 2019-11-02)
PROC: 0QBQ0ZZ Excision of Right Toe Phalanx, Open Approach (ICD-10-PCS; principal; 2019-11-02 07:30)
DX: M20.11 Hallux valgus (acquired), right foot (principal); M20.41 Other hammer toe(s) (acquired), right foot
CPT/HCPCS: 36415; 71046; 80048; 81003; 85025; 85610; 85730; 93005; J0690; J2250; J2405; J2704; J3010; J7120

== ENCOUNTER 2019-12-26 06:36 | Day surgery (SDC) | payer OTHER ==
[2019-12-19 10:24] LABS: Urine Appearance CLEAR; Urine Bilirubin NEGATIVE (NEG); Urine Blood NEGATIVE (NEG); Urine Color YELLOW; Urine Glucose NEGATIVE (NEG); Urine Protein NEGATIVE (NEG); Urine Specific Gravity <=1.005 (1.005-1.030); Urine Urobilinogen 0.2 mg/dL (0.2-1.0)
[2019-12-19 10:39] LABS: Protime INR 0.96; Urine Microscopic Reflex NO UMIC
[2019-12-19 10:41] LABS: Absolute Lymphocytes (CBC) 1.5 K/uL (0.7-4.9); Basophils % 1.1 % (0-1.3); Hematocrit 40.4 % (36.0-45.0); Lymphocytes % 30.6 % (15.3-44.8); MPV 7.8 fL (7.6-11.3); RBC Red Blood Cell Count 4.19 M/uL (3.86-4.86)
[2019-12-19 10:49] LABS: Potassium 4.4 mmol/L (3.5-5.1)
--- NOTE | 2019-12-25 15:26 | PREOPHP ---
Date of Admission: 12/19/2019 History Of Present Illness: This patient presented to my office with a chief complaint of a painful bunion present in the left foot with painful second toe present on the left foot for many months. Th e patient has had corrective surgery to her bunion and second toe on the right foot by myself vivienne finch 7 weeks ago and now requests surgical management of the left foot chief complaint. Pain is th robbing in nature, moderate in severity, relieved by rest, worse with activity. The patient has sukhdev fied her shoe gear, all to no avail, and requests surgical management. Past Medical History: Includes anxiety disorder. Allergies: NKDA. Medication List: Hair, Skin and Nails tablet, Osteo Bi-Flex 250 mg, turmeric 400 mg capsule, fish oi l 1000 mg, vitamin D3 1000 units, multivitamin, and amitriptyline 10 mg. Social History: Patient denies smoking or IV drug use. Admits to social wine consumption. Surgical History: Includes surgery to the shoulder and right foot. Family History: Positive for hypertension and gout in her father, cancer in her mother. Physical Examination: General Appearance: Healthy, well developed, well nourished. The patient is well oriented x3. Vascular: Evaluation reveals dorsalis pedis and posterior tibial pulses to be 4/4 bilaterally. Capi llary refill time less than 3 seconds to all toes. Temperature gradient is within normal limits. Th ere is no complaint of any claudication or varicosities bilaterally. Musculoskeletal: Evaluation reveals flexible cavus foot type bilaterally. Subtalar joint shows incr eased varus and forefoot adductus, both present bilaterally. There is a medial eminence of the first metatarsal head with range of motion to 80 degrees on the left. Hallux valgus is noted on the left with equinus noted to be at 0 degrees bilaterally per goniometer measurement. There is a tailor buni onette deformity noted bilaterally. The digits of the left foot are noted to be contracted at the se cond PIPJ, semi-rigid on the left. Muscle testing, knee, and ankle assessments are all within normal limits. There is no tenderness on palpation of the plantar fascia. No subcutaneous soft tissue mas ses are noted. The postop eval of the right big toe joint shows no redness and range of motion is 70 degrees without pain. Second toe showed mild edema, but is rectus. SKIN: Evaluation reveals no rash, ulcer, tumor, or contracture. There was callus sub 1 through 5 MP Js bilaterally. Neurologic: Evaluation reveals deep tendon reflexes of the lower extremities; patellar and Achilles to be 5/5. Sensory testing, sharp and dull, was within limits. Imaging: X-ray evaluation of left foot reveals no fracture, tumor, or degenerative joint disease see n. Bones well mineralized. Calcaneal inclination angle is within normal limits. Talocalcaneal angl e is normal. First metatarsal angle shows some dorsiflexion. Lesser metatarsals are well aligned. There is an inferior calcaneal spur noted. There is a lateral deviation of the hallux and sesamoids with increase in the intermetatarsal angle to 14 degrees. Hallux abduct angle is 19 degrees. There is mild spurring of the first met head with talonavicular sag noted. Diagnoses: Hallux valgus deformity, left foot. Hammertoe deformity, second digit, left foot. Recommendations: The recommended treatment is for a bunion correction with first metatarsal osteotom y of the left foot, hammertoe fusion with an implant device on the second toe, left foot. The patien t understands the risks, benefits, alternatives of the above-mentioned procedure including, but not l imited to the risk of pain, swelling, numbness, stiffness, infection, nonhealing of skin or bone, rec urrence of the deformity, and risk of DVT and PE have been explained to the patient as well as the si gns and symptoms. Lab work has been ordered. Medical H and P will be completed by Anesthesia. The patient has postop medications for pain as well as postop shoe and cold therapy unit will be dispense d after surgery. Due to lack of response to conservative treatment, surgical care is now desired by the patient due to interference with activities of daily life. Discussion of orthotic devices postop eratively to prevent biomechanical deformity is recommended in the future. The patient is scheduled for surgery at [facility] on December 26, 2019. ROMULO Voice ID: [id number]
--- OUTSIDE RECORDS SUMMARY | 2019-12-26 06:37 | XMS REPORT ---
[...] End Status Dosage System Date Date Pepcid [facility] 94805098692 20 MG Orally Active 1 tablet at Once a day bedtime Estroven NDC 0 Active not defined Multivitamin ND 70225124260 - Orally Active as directed Adult Etknlf-L90-Gbusg ND 0 800-500-20 Active 1 tablet nsic Factor MCG-MCG-MG Orally Once a day Amitriptyline ND 72900601511 10 MG Orally Active 1 tablet at HCl Once a day bedtime Duloxetine HCl ND 38277253009 30 MG Orally March 16, Active 1 capsule Once a day 2018 Fish Oil ND 02127400703 1000 MG Orally Active 1 capsule Once a day Results No Known Results Summary Purpose eClinicalWorks Submission
--- OUTSIDE RECORDS SUMMARY | 2019-12-26 06:37 | XMS REPORT ---
[...] Status Dosage System Date Date Duloxetine HCl [facility] 94533841640 30 MG Orally March 16, Active 1 capsule Once a day 2018 Pepcid [facility] 38573188393 20 MG Orally Active 1 tablet at Once a day bedtime Multivitamin [facility] 41705982661 - Orally Active as directed Adult Fish Oil ND 84905527125 1000 MG Orally Active 1 capsule Once a day Estroven ND 0 Active not defined Eiumjk-C63-Cmnqs [facility] 0 800-500-20 Active 1 tablet nsic Factor MCG-MCG-MG Orally Once a day Amitriptyline ND 84617532713 10 MG Orally Active 1 tablet at HCl Once a day bedtime Macrobid [facility] 52890197716 100 MG Orally Active 1 capsule every 12 hrs with food Results Name Result Date Reference Range Unit Abnormality Flag CULTURE, URINE, ROUTINE ----CULTURE, URINE, ROUTINE SEE NOTE [id number] Summary Purpose [facility]
--- OUTSIDE RECORDS SUMMARY | 2019-12-26 06:37 | XMS REPORT ---
[...] Medications Results No Known Results Summary Purpose [facility] Submission
--- OUTSIDE RECORDS SUMMARY | 2019-12-26 06:37 | XMS REPORT ---
[...] Instructions Start End Date Status Dosage Date [facility] 03518562255 20 MG Orally Active 1 tablet at Once a day bedtime Results No Known Results Summary Purpose eClinicalWorks Submission
--- OUTSIDE RECORDS SUMMARY | 2019-12-26 06:37 | XMS REPORT ---
[...] Status Dosage System Date Date Amitriptyline HCl [facility] 34569247390 10 MG Orally Active 1 tablet Once a day at bedtime Results No Known Results Summary Purpose eClinicalWorks Submission
--- OUTSIDE RECORDS SUMMARY | 2019-12-26 06:37 | XMS REPORT ---
:1965 [facility] Address [address] [place] [address] Dr. Hernandez [address] [place] [address] Care Team Providers Name Role Phone Unavailable Unavailable Unavailable Problems This patient has no known problems. Allergies, Adverse Reactions, Alerts This patient has no known allergies or adverse reactions. Medications This patient has no known medications.
--- OUTSIDE RECORDS SUMMARY | 2019-12-26 06:37 | XMS REPORT ---
[...] Status Dosage System Date Date Duloxetine HCl [facility] 94567691527 30 MG Orally March 16, Active 1 capsule Once a day 2018 Estroven NDC 0 Active not defined Cetwfi-Z97-Pkwua ND 0 800-500-20 Active 1 tablet nsic Factor MCG-MCG-MG Orally Once a day Fish Oil ND 05355353535 1000 MG Orally Active 1 capsule Once a day Pepcid [facility] 67360136777 20 MG Orally Active 1 tablet at Once a day bedtime Amitriptyline ND 22110239514 10 MG Orally Active 1 tablet at HCl Once a day bedtime Macrobid [facility] 94647741223 100 MG Orally Active 1 capsule every 12 hrs with food Multivitamin ND 23727447043 - Orally Active as directed Adult Results Name Result Date Reference Range Unit Abnormality Flag URINALYSIS AUTO W/O SCOPE (50182) ----KIERRA neg 20191003 ----NIT neg 20191003 ----PROTEIN neg 20191003 ----pH 7.0 20191003 ----GLUCOSE neg 20191003 ----KETONES trace 20191003 ----SPECIFIC GRAVITY 1.010 20191003 ----BLO neg 20191003 Summary Purpose eClinicalWorks Submission
--- OUTSIDE RECORDS SUMMARY | 2019-12-26 06:38 | XMS REPORT ---
[...] specified Problem Thyroid antibody positive R76.8 Active Assessment Elevated glucose R73.09 Active Problem Pure hypercholesterolemia E78.00 Active Problem Elevated blood pressure reading in I10 Active office with white coat syndrome, with diagnosis of hypertension Problem Gastroesophageal reflux disease, K21.9 Active esophagitis presence not specified Problem Primary insomnia F51.01 Active Problem Elevated blood pressure reading in R03.0 Active office with white coat syndrome, without diagnosis of hypertension Assessment Elevated TSH R79.89 Active Assessment Anxiety F41.9 Active Assessment Primary insomnia F51.01 Active Assessment Elevated blood pressure reading in R03.0 Active office with white coat syndrome, without diagnosis of hypertension Assessment Thyroid antibody positive R76.8 Active Assessment Pure hypercholesterolemia E78.00 Active Problem Postmenopausal disorder N95.1 Active Assessment 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 Active Problem Anxiety F41.9 Active Medications Medication Code Code Instructions Start End Status Dosage System Date Date Multivitamin ND 80703668124 - Orally Active as directed Adult Estroven NDC 0 Active not defined Macrobid ND 97389363300 100 MG Orally Active 1 capsule every 12 hrs with food Duloxetine HCl NDC 24762824017 30 MG Orally March 16, Active 1 capsule Once a day 2018 Fish Oil NDC 67529686884 1000 MG Orally Active 1 capsule Once a day Amitriptyline ND 04917073140 10 MG Orally Active 1 tablet at HCl Once a day bedtime Poqfsk-Y22-Crqks NDC 0 800-500-20 Active 1 tablet nsic Factor MCG-MCG-MG Orally Once a day Pepcid [facility] 93412910463 20 MG Orally Active 1 tablet at Once a day bedtime Results No Known Results Summary Purpose eClinicalWorks Submission
--- OUTSIDE RECORDS SUMMARY | 2019-12-26 06:38 | XMS REPORT ---
[...] Medications Results No Known Results Summary Purpose [facility] Submission
[2019-12-26] MEDS ORDERED: Ringers Lactate 1,000 ML IV ONE ×2 (06:51→09:34)
[2019-12-26] MEDS ORDERED: CEFAZOLIN/SWI 1gm 1 GM/10 ML SYR ONE (06:52)
[2019-12-26] MEDS ORDERED: MIDAZOLAM HCL 2 MG/2 ML INJ ONE (07:13)
[2019-12-26] MEDS ORDERED: propofoL 200 MG/20 ML VIAL IV ONE ×3 (07:13→07:59)
[2019-12-26] MEDS ORDERED: FENTANYL CITR 100 MCG/2 ML ONE (07:13)
[2019-12-26] MEDS ORDERED: LIDOCAINE 2% MPF 5 ML VIAL ONE (07:13)
[2019-12-26] MEDS ORDERED: dexAMETHasone 4 MG/ML VIAL ONE (07:23)
[2019-12-26] MEDS ORDERED: BUPIVACAINE 0.5% PF 10 ML VIAL ONE (07:24)
[2019-12-26] MEDS ORDERED: LIDOCAINE 1% 20 ML MDV ONE (07:24)
[2019-12-26] MEDS ORDERED: Mastisol Adhesive Liq ONE (07:24)
[2019-12-26] MEDS ORDERED: ONDANSETRON 4 MG/2 ML VIAL ONE (07:29)
[2019-12-26] MEDS ORDERED: EPHEDRINE SULF 50 MG/ML VIAL ONE (08:20)
[2019-12-26] MEDS ORDERED: KETOROLAC 30 MG/ML INJ ONE (09:22)
[2019-12-26] MEDS ORDERED: MEPERIDINE HCL 25 MG/0.5 ML ONE (09:28)
[2019-12-26 10:19] VITALS: O2SAT 99
--- NOTE | 2019-12-26 10:40 | RAD REPORT ---
EXAM DESCRIPTION: RAD - Foot Left 3 View - 12/26/2019 10:14 am CLINICAL HISTORY: Left Foot surgery FINDINGS: Bunionectomy first metatarsal Plate fuses the second PIP joint. Bones are osteoporotic No dislocation
[2019-12-26 11:59] VITALS: BP 148/63; TEMP 96.8
[2019-12-26] MEDS ORDERED: MEPERIDINE HCL 50 MG/ML ONE (12:28)
[2019-12-26] MEDS ORDERED: HYDROMORPHONE HCL 1 MG/ML INJ ONE (12:28)
--- NOTE | 2019-12-26 20:48 | OP ---
Date of Procedure: 12/26/2019 Surgeon: Aly Paul DPM Preoperative Diagnoses: 1.Hallux valgus, left foot. 2.Hammertoe deformity, second digit, left foot. Postoperative Diagnoses: 1.Hallux valgus, left foot. 2.Hammertoe deformity, second digit, left foot. Procedures: 1.Bunionectomy with first metatarsal head osteotomy with SonicPin fixation, left foot. 2.Fusion second toe PIPJ with 19 mm angled smart toe, left foot. 3.Tenotomy and capsulotomy second metatarsophalangeal joint, left foot. Anesthesia: General. Description Of Procedure: Procedure #1: Patient was brought into the operating room and placed on t he operating room table in supine position. Once adequate IV sedation was obtained, the patient was injected with a total of 12 mL of 0.5% Marcaine plain. Patient was prepped and draped in the usual s terile manner and the left extremity was elevated to 60 degrees for a period of 3 minutes to exsangui andreia the blood supply. Pneumatic ankle tourniquet was elevated to 250 mmHg. Attention was then dire cted to the first MPJ where a 5 cm dorsal linear incision was made overlying the first MPJ. At this time, the patient was moving her foot regardless of stimulation or not and was converted to general. The incision was deepened via sharp and blunt dissection down to the level of the capsule. All neur ologic structures were avoided. All bleeders were clamped and bovied. An inverted L incision was ma de in the capsule of the first MPJ and dissected free from its bony attachments. The medial eminence was brought into view and resected utilizing oscillating saw. The first interspace was then approac hed and a lateral capsulotomy adducted tenotomy and EHB tenotomy was performed. The foot was then re positioned with the knee bent and an osteotomy was created in the head of the first metatarsal with t he apex distal and the arms proximal in a V-shape fashion at 60 degrees. The oscillating saw was uti lized for medial collateral. The osteotomy was completed and the capital fragment was shifted latera lly and impacted medially upon the shaft of the first metatarsal. The remaining medial eminence was then removed utilizing an oscillating saw. There was enlargement on the dorsal aspect of the first m etatarsal head just behind the cartilage. This was removed utilizing a rongeur to facilitate fixatio n in addition to removing the bumps utilizing the Clymer SonicPin fixation, a K-wire was drilled fro m the dorsal aspect of the first metatarsal head into the shaft, angulated plantarly and the drill wa s then placed over the wire after measurements were taken and a 22 pin was decided to be used. The d rill was then utilized to create a hole. The wire and cannulated drill were removed. The 22 mm pin was then placed in the hole. Pedal was depressed. Pin was pushed in until flushed and then 5 second s were waited and the apparatus was removed from the pin. The fixation was excellent with no movemen t. All rough edges were smoothed utilizing a rotary bur. The area was flushed with copious amounts of sterile saline. Medial capsulorrhaphy was then performed with the toe held in corrected position utilizing a 15 blade. Capsular tissue was reapproximated utilizing 2-0 Vicryl suture. Skin was reap proximated utilizing 4-0 Prolene horizontal mattress suture. Excellent range of motion was seen at 8 0 degrees with a rectus first ray on simulated weightbearing. Procedure #2: Two semi-elliptical converging incisions were made on the second toe overlying the PIP J, 1 cm in length, wedge of skin was removed. The incision was deepened down to the level of the ext ensor digitorum longus tendon which was transversely incised at the level of the PIPJ. Utilizing a 1 5 blade, the medial and lateral collateral ligaments were incised and the tendon was freed back to th e MPJ. There was still some mild contracture at the proximal phalanx. A stab incision was made at t he second MPJ just lateral with a 15 blade. Utilizing curved hemostats, the tendons were freed and c apsular tissue was identified. A 15 blade was used to perform a capsulotomy and extensor brevis teno sherwin. The toe was seen to lay flat at the level of the MPJ at this time. Utilizing the Clymer Smar t Toe fixation set, an oscillating saw was utilized to cut the articular surface off the proximal pha lanx and a rasp was used to clean the cartilage off the base of the middle phalanx. A drill hole was placed in the proximal and middle phalanx. The implant was then placed 19 mm angle into the proxima l phalanx and retrograded into the distal phalanx. Good contact and approximation of the bone were s een. Tendon was reapproximated with 3-0 Vicryl suture. Skin was reapproximated after flushing with copious amounts sterile saline with 4-0 prolene horizontal mattress suture. The skin was closed at t he stab incision at the MPJ with a 4-0 prolene horizontal mattress suture. The areas were dressed wi th Adaptic, dry sterile gauze, dry sterile Joshua, Kerlix, cold therapy pad, and Kimani bandaging. Pneum atic ankle tourniquet was deflated and capillary return was seen to be instantaneous to all digits. Betadine was applied through a syringe onto the second toe bandaging to create a firm cast like allen ging. The patient was sent to recovery in satisfactory condition. Cold therapy was initiated in rec overy room. SUNNY/RENEE Voice ID: [id number] Report ID: [id number]
--- NOTE | 2019-12-26 20:56 | DS ---
Date of Discharge: 12/26/2019 Date Of Surgery: 12/26/2019. Surgeon: Aly Paul DPM Preoperative Diagnoses: 1.Hallux valgus deformity, left foot. 2.Hammertoe deformity, second digit, left foot. 3.Contractures, second metatarsophalangeal joint, left foot. Procedures: 1.Bunionectomy with first metatarsal head osteotomy with SonicPin fixation. 2.Fusion second toe PIPJ with 19 mm angled Smart Toe implant. 3.Tenotomy and capsulotomy second MPJ, left foot. Hospital Course: Patient tolerated the procedure and anesthesia well, was sent to recovery in satisf actory condition. Patient may resume normal diet and minimal activity on the foot in a postop shoe. Patient has been given written postop instructions and emergency phone number and will be sent home with cold therapy unit for added pain management along with her prescription that she had from her pr ior surgery for pain medications. Patient will be seen in my office on 1 week followup care. SUNNY/RENEE Voice ID: [id number] Report ID: [id number]
== END 2019-12-26 11:16 | disposition home or self-care (01) ==
LOC: OR 06:36
PROVIDERS: ATTEND Podiatrist
PROC: 0SGQ04Z Fusion of Left Toe Phalangeal Joint with Internal Fixation Device, Open Approach (ICD-10-PCS; 2019-12-26)
PROC: 0QSP04Z Reposition Left Metatarsal with Internal Fixation Device, Open Approach (ICD-10-PCS; principal; 2019-12-26 07:30)
DX: M20.12 Hallux valgus (acquired), left foot (principal); M20.42 Other hammer toe(s) (acquired), left foot; M24.575 Contracture, left foot; F41.9 Anxiety disorder, unspecified; Z79.899 Other long term (current) drug therapy
CPT/HCPCS: 36415; 80048; 81003; 85025; 85610; 85730; J0690; J1170; J2175; J2250; J2405; J2704; J3010; J7120

== ENCOUNTER 2020-08-09 06:43 | Day surgery (SDC) | payer OTHER ==
--- OUTSIDE RECORDS SUMMARY | 2020-08-09 06:55 | XMS REPORT ---
:1965 Author Organization [facility] Address [address] [place], [address] [place] [address] Care Team Providers Name Role Phone Fuentes Unavailable [phone] PROBLEMS Type Condition ICD9-CM RPL24-XI Onset Condition SNOMED Code Notes Code Code Dates Status Problem Postmenopausal disorder N95.1 Active 11446279 0 Problem Liver cyst K76.89 Active 29544650 Problem Anxiety F41.9 Active 45096539 Problem Gastroesophageal reflux K21.9 Active 73790799 9 disease, esophagitis presence not specified Problem Elevated blood pressure I10 Active 10577755 reading in office with white coat syndrome, with diagnosis of hypertension Problem Elevated blood pressure R03.0 Active 50559538 5 reading in office with white coat syndrome, without diagnosis of hypertension Problem Seasonal allergic J30.2 Active 797608818 rhinitis, unspecified trigger Problem Diverticulosis K57.90 Active 401289999 Problem Polyp of colon, K63.5 Active 92205091 unspecified part of colon, unspecified type Problem History of colon polyps Z86.010 Active 15788130 2 Problem Primary insomnia F51.01 Active 6279526 Problem Pure E78.00 Active 034694446 hypercholesterolemia Problem Thyroid antibody R76.8 Active 660466200 positive Problem Elevated TSH R79.89 Active 054076055 ALLERGIES No Known Allergies ENCOUNTERS from 1965 to 2020-07-24 Encounter Location Date Provider Diagnosis [facility] [address] [place], Vivi Lilly yp of colon, Family Medicine [address], [place] [address] colon, unspeci fied type K63.5 IMMUNIZATIONS No Information SOCIAL HISTORY Tobacco Use: Social History Observation Description Date Details (start date - stop date) Former Smoker Sex Assigned At : Social History Observation Description Sex Assigned At Unknown PHQ9 Question Answer Notes Little interest or pleasure in doing things Not at all Feeling down, depressed, or hopeless Not at all Trouble falling or staying asleep or sleeping too much Not a t all Feeling tired or having little energy Not at all Poor appetite or overeating Not at all Feeling bad about yourself, or that you are a failure, or cabrales ve let Not at all yourself or your family down Trouble concentrating on things, such as reading the newspap er or Not at all watching television Moving or speaking so slowly that other people could have no ticed; Not at all or the opposite, being so fidgety or restless that you have been moving around a lot more than usual Total Score 0 Thoughts that you would be better off or of hurting you rself in Not at all some way Alcohol Screen Question Answer Notes Did you have a drink containing alcohol in Yes the past year? Points 4 Interpretation Positive How often did you have a drink containing Four or more times a week (4 points) alcohol in the past year? Tobacco Use/Smoking Question Answer Notes Are you a former smoker REASON FOR REFERRAL No Information VITAL SIGNS No information MEDICATIONS Medication SIG (Take, Route, Start Date End Date Status Frequency, Duration) Fish Oil 1000 MG 1 capsule Orally Once a Active day for 30 day(s) Pepcid 20 MG 1 tablet at bedtime Orally A ctive Once a day for 30 day(s) Duloxetine HCl 30 MG 1 capsule Orally Once a February, Active day for 30 day(s) Amitriptyline HCl 10 MG 1 tablet at bedtime Orally Active Once a day for 30 day(s) Hvzdoh-Z46-Lksvrdugp Factor 1 tablet Orally Once a day Active 800-500-20 MCG-MCG-MG for 30 day(s) Multivitamin Adult - as directed Orally A ctive Estroven Active Macrobid 100 MG 1 capsule with food Orally Active every 12 hrs for 7 day(s) PROCEDURES No Information RESULTS No Results REASON FOR VISIT referral request MEDICAL (GENERAL) HISTORY Type Description Date Surgical History Shoulder- it 2016 Surgical History Jaw-TMJ 1999 Goals Section No Information Health Concerns No Information MEDICAL EQUIPMENT No Information MENTAL STATUS No Information FUNCTIONAL STATUS No Information ASSESSMENTS Encounter Date Diagnosis Notes Jun, Polyp of colon, unspecified part of colo n, unspecified type (ICD-10 - K63.5) PLAN OF TREATMENT Next Appt Details Provider Name:Vivi Jha Alfredo, 2020-10-29 08:0 0:00 AM, [address] [place], [address], [place], [address], Insurance Providers Payer Name Payer Payer Insured Name Patient Coverage Covera End Address Phone Relationship to Start Date Abdi e Insured [address] [phone] YesiMoniquei self [address] [place] [address]
--- OUTSIDE RECORDS SUMMARY | 2020-08-09 06:55 | XMS REPORT | Continuity of Care Document ---
:1965 Author Organization [facility] t Address [address] [place] [address] Care Team Providers Name Role Phone Unavailable Unavailable Unavailable Problems This patient has no known problems. Allergies, Adverse Reactions, Alerts This patient has no known allergies or adverse reactions. Medications Ordered Filled Start Stop Current Ordering Indication Dosage Frequency Signature Comments Components Source Medication Medication Date Date Medication? Clinician (SIG) Name Name Duloxetine Duloxetine 2019-0 Yes Na Fuentes [address] [facility] HCl HCl [facility]23 [facility] Amitriptyli Amitriptyli Yes Na Fuentes [address] [facility] ne HCl ne HCl at bedtime [facility] Pepcid Pepcid Yes Na Fuentes [address] [facility] at bedtime [facility] Multivitami Multivitami Yes Na Fuentes as [facility] Adult n Adult directed [facility] Fish Oil Fish Oil Yes Na Fuentes [address] [facility] Estroven Estroven Yes Na Fuentes not [facility] defined [facility] Folate-B12- Folate-B12- Yes Na Fuentes [address] [facility] Intrinsic Intrinsic [facility] Macrobid Macrobid Yes Na Fuentes [address] [facility] with food [facility] Procedures This patient has no known procedures. Encounters Start End Encounter Admission Attending Care Care Encounter Source Date/Time Date/Time Type Type Clinicians Facility Department ID 2020-07-23 2020-07-23 [facility] [id number]00 [facility] Outpat[facility] Clin[facility] 2020-05-28 2020-05-28 [facility] [id number] [facility] 15:08:00 15:08:00 t Diana [employer]imated Speech s - [employer] [facility] l Medicine Outpati ent Clinics 2020-05-07 2020-05-07 [facility] [id number] [facility] 16:00:00 16:00:00 t Diana Diana Wis.dm s - [employer] [facility] l Medicine Outpati ent Clinics 2020-04-30 2020-04-30 [facility] [id number] [facility] 13:00:00 13:00:00 t Diana [employer]imated Speech [employer] [place] [facility] l Medicine Outpati ent Clinics 2019-10-31 2019-10-31 [facility] [id number] [facility] 14:40:00 14:40:00 t Diana Diana Wis[employer]dm [employer] - [employer] [facility] Medicine l Medicine Outpati ent Clinics 2019-10-08 2019-10-08 [facility] [id number] [facility] 01:43:00 01:43:00 t Diana [employer] - [employer] [facility] Medicine l Medicine Outpati ent Clinics 2019-10-03 2019-10-03 [facility] [id number] [facility] 10:40:00 10:40:00 t Diana Diana Wis[employer]dm s - [employer] [facility] Medicine l Medicine Outpati ent Clinics 2019-10-02 2019-10-02 [facility] [id number] [facility] 09:34:00 09:34:00 t Diana Diana Wis[employer]dm [employer] - [employer] [facility] Medicine l Medicine Outpati ent Clinics 2019-09-28 2019-09-28 [facility] [id number] [facility] 14:00:00 14:00:00 t Diana Diana Wis[employer] [facility] Medicine l Medicine Outpati ent Clinics 2019-09-26 2019-09-26 [facility] [id number] [facility] 15[facility]47:00 15:47:00 t Diana Diana Wis[employer]dm [employer] [address] [facility] 2019-09-19 2019-09-19 [facility] [id number] [facility] 11:29:00 11:29:00 t [employer] [facility] 2019-08-03 2019-08-03 [facility] [id number] [facility] 13[facility]20:00 13:20:00 [employer] [facility] 2019-05-05 2019-05-05 [facility] [id number] [facility] 15:00:00 15:00:00 t [employer] [facility] ent Clinics Results This patient has no known results.
--- OUTSIDE RECORDS SUMMARY | 2020-08-09 06:55 | XMS REPORT ---
:1965 Author Organization [employer] Care Team Providers Name Role Phone Fuentes, Na Provider Role Unavailable Allergies No Known Allergies Problems Problem Type Condition Code Onset Dates Condition Statu s Problem History of colon polyps Z86.010 Acti ve Problem Gastroesophageal reflux disease, K21.9 Active esophagitis presence not specified Problem Diverticulosis K57.90 Active Problem Elevated TSH R79.89 Active Problem Thyroid antibody positive R76.8 Ac tive Problem Seasonal allergic rhinitis, J30.2 Active unspecified trigger Problem Elevated blood pressure reading in R03.0 Active office with white coat syndrome, without diagnosis of hypertension Problem Elevated blood pressure reading in I10 Active office with white coat syndrome, with diagnosis of hypertension Problem Pure hypercholesterolemia E78.00 Ac tive Problem Primary insomnia F51.01 Active Problem Postmenopausal disorder N95.1 Acti ve Problem Anxiety F41.9 Active Assessment Seasonal allergic rhinitis, J30.2 Active unspecified trigger Problem Liver cyst K76.89 Active Medications No Known Medications Results No Known Results Summary Purpose [employer] Submission
[2020-08-09] MEDS ORDERED: Ringers Lactate 1,000 ML IV ONE (07:26)
[2020-08-09] MEDS ORDERED: propofoL 200 MG/20 ML VIAL IV ONE (07:36)
[2020-08-09] MEDS ORDERED: LIDOCAINE 1% MPF 5 ML VIAL ONE (07:36)
[2020-08-09 08:30] VITALS: TEMP 97.6
[2020-08-09 08:34] VITALS: BP 151/85; O2SAT 100
== END 2020-08-09 08:31 | disposition home or self-care (01) ==
LOC: OR 06:43
PROVIDERS: ATTEND Surgery
PROC: 0DJD8ZZ Inspection of Lower Intestinal Tract, Via Natural or Artificial Opening Endoscopic (ICD-10-PCS; principal; 2020-08-09 07:30)
DX: Z86.010 Personal history of colon polyps (principal); K57.30 Diverticulosis of large intestine without perforation or abscess without bleeding; Z20.828 Contact with and (suspected) exposure to other viral communicable diseases
CPT/HCPCS: 45378; U0002; J2704; J7120